=== PATIENT | male | born 1945 | race Hispanic/Latino ===

== ENCOUNTER 2018-03-02 21:14 | Emergency (ER) | payer SELFPAY ==
--- NOTE | 2018-03-02 22:06 | RAD ---
PORTABLE CHEST: 03/02/18 HISTORY: Patient tripped and fell down face first on yard. Heart size is enlarged. Mild vascular engorgement is noted. No focal infiltrates. More chronic appear ing lung changes seen. IMPRESSION: Cardiomegaly with some more chronic appearing lung changes and mild vascular engorgement. POS: [facility]
--- NOTE | 2018-03-02 22:07 | CT ---
CT OF BRAIN PERFORMED WITHOUT CONTRAST ENHANCEMENT: 03/02/18 HISTORY: Patient fell, was intoxicated. Fell and hit face. The ventricular and cisternal system shows fairly age appropriate change. There is no signs for intra cerebral hemorrhage or extra-axial fluid collections. Mastoid air cells are clear. Mucosal change in the right maxillary sinus is noted. IMPRESSION: No acute intracranial abnormalities. POS: [facility]
--- NOTE | 2018-03-02 22:23 | CT ---
CT OF CERVICAL SPINE PERFORMED WITHOUT CONTRAST ENHANCEMENT: 03/02/18 HISTORY: Patient tripped and fell with neck pain. The vertebral bodies are normal in height. Marked degenerative disc narrowing is seen at C4-5, C5-6 a nd C6-7. There are degenerative facet changes also present. Mild disc narrowing is seen at C3-4. There is left sided foraminal narrowing at C3-4 and C4-5 and bilateral foraminal stenosis at C5-6 wit h mild canal narrowing. Bilateral foraminal stenosis is also seen at C6-7. There is no CT evidence fo r fracture. Chronic appearing lung changes are seen. IMPRESSION: No CT evidence of fracture of the cervical spine. POS: [facility]
== END 2018-03-02 22:15 ==
LOC: ERS 21:14
DX: S01.21XA Laceration without foreign body of nose, initial encounter (principal); F17.210 Nicotine dependence, cigarettes, uncomplicated; W01.0XXA Fall on same level from slipping, tripping and stumbling without subsequent striking against object, initial encounter
CPT/HCPCS: 36416; 70450; 71045; 72125; 94760

== ENCOUNTER 2020-07-20 09:52 | Emergency (ER) | payer SELFPAY ==
[2020-07-20] MEDS ORDERED: Dexamethasone 10 MG/ML VIAL ONE (10:52)
[2020-07-20 11:09] LABS: #Basophils 0.1 thou/uL (0.0-0.2); #Eosinphils 1.7 thou/uL (0.0-0.7); #Lymphocytes 3.1 thou/uL (1.20-3.40); #Monocytes 0.4 thou/uL (0.11-0.59); #Neutrophils 4.9 thou/uL (1.40-6.50); %Basophils 0.7 % (0.0-1.0); %Eosinophils 16.4 % (0.0-10.0); %Lymphocytes 30.6 % (21.0-51.0); %Monocytes 3.8 % (0.0-10.0); %Neutrophils 48.5 % (42.0-75.0); Hemoglobin 14.5 g/dL (14.0-18.0); Mean Corpuscular HGB CONC 33.9 g/dL (32.0-36.0); Mean Corpuscular Hemoglobin 34.5 pg (27.0-31.0); Mean Platelet Volume 7.7 fL (7.4-10.4); Platelet Count 323 thou/uL (130-400); RBC Distribution Width 12.2 % (11.5-14.5); Red Blood Cell (RBC) Count 4.21 mill/uL (4.70-6.10)
[2020-07-20] MEDS ORDERED: Albuterol 200 PUFF (6.7GM INHALER) ONE (11:11)
[2020-07-20 11:17] LABS: ALT (SGPT) 23 U/L (8-55); AST (SGOT) 29 U/L (5-34); Albumin 3.9 g/dL (3.4-4.8); Alkaline Phosphatase 133 U/L (40-110); Anion Gap 13 mmol/L (10-20); BUN (Urea Nitrogen) 14 mg/dL (8.4-25.7); Bilirubin, Total 0.5 mg/dL (0.2-1.2); Calc. Creatinine Clearance 0 mL/min (70-130); Calcium 9.4 mg/dL (7.8-10.44); Carbon Dioxide 22 mmol/L (23-31); Chloride 108 mmol/L (98-107); Globulin 4.8 g/dL (2.4-3.5); Glucose 94 mg/dL (83-110); Potassium 3.8 mmol/L (3.5-5.1); Protein, Total 8.7 g/dL (5.8-8.1); Sodium 139 mmol/L (136-145)
== END 2020-07-20 12:22 | disposition home or self-care (01) ==
LOC: ERS 09:52
DX: J44.1 Chronic obstructive pulmonary disease with (acute) exacerbation (principal); F17.210 Nicotine dependence, cigarettes, uncomplicated
CPT/HCPCS: 36415; 71045; 80053; 83880; 84484; 85025; 93005; 96374; J1100

== ENCOUNTER 2020-10-19 08:55 | Emergency (ER) | payer SELFPAY ==
[2020-10-19] MEDS ORDERED: Albuterol 200 PUFF (6.7GM INHALER) ONE (09:23)
[2020-10-19] MEDS ORDERED: predniSONE 20 MG TAB ONE (09:24)
== END 2020-10-19 11:22 | disposition home or self-care (01) ==
LOC: ERS 08:55
DX: R06.03 Acute respiratory distress (principal); J81.1 Chronic pulmonary edema; F17.210 Nicotine dependence, cigarettes, uncomplicated
CPT/HCPCS: 71045; J7512; J7620

== ENCOUNTER 2021-01-22 09:31 | Observation (INO) | payer MEDICARE, SELFPAY ==
[2021-01-22] MEDS ORDERED: Iopamidol-370 76% 500 ML 1 ML ONE (10:17)
[2021-01-22 11:06] LABS: #Basophils 0.1 thou/uL (0.0-0.2); #Eosinphils 2.2 thou/uL (0.0-0.7); #Lymphocytes 2.7 thou/uL (1.20-3.40); #Monocytes 0.5 thou/uL (0.11-0.59); #Neutrophils 4.3 thou/uL (1.40-6.50); %Basophils 0.8 % (0.0-1.0); %Eosinophils 22.2 % (0.0-10.0); %Lymphocytes 27.6 % (21.0-51.0); %Neutrophils 44.4 % (42.0-75.0); Mean Corpuscular HGB CONC 32.6 g/dL (32.0-36.0); Mean Corpuscular Hemoglobin 33.7 pg (27.0-31.0); Mean Platelet Volume 7.8 fL (7.4-10.4); Platelet Count 373 thou/uL (130-400); RBC Distribution Width 12.8 % (11.5-14.5); Red Blood Cell (RBC) Count 4.46 mill/uL (4.70-6.10); White Blood Cell (WBC) Count 9.7 thou/uL (4.8-10.8)
[2021-01-22 11:33] LABS: ALT (SGPT) 12 U/L (8-55); AST (SGOT) 20 U/L (5-34); Albumin 3.7 g/dL (3.4-4.8); Alkaline Phosphatase 160 U/L (40-110); Anion Gap 14 mmol/L (10-20); BUN (Urea Nitrogen) 8 mg/dL (8.4-25.7); Bilirubin, Total 0.4 mg/dL (0.2-1.2); Calc. Creatinine Clearance 0 mL/min (70-130); Calcium 9.5 mg/dL (7.8-10.44); Carbon Dioxide 23 mmol/L (23-31); Chloride 106 mmol/L (98-107); Globulin 4.4 g/dL (2.4-3.5); Glucose 96 mg/dL (83-110); Potassium 4.1 mmol/L (3.5-5.1); Protein, Total 8.1 g/dL (5.8-8.1); Sodium 139 mmol/L (136-145)
[2021-01-22 12:13] LABS: SARS-CoV-2 NAA Rapid Test Not Detected (NotDetected)
[2021-01-22] MEDS ORDERED: Acetaminophen 325 MG TAB PO PRN (16:00)
[2021-01-22] MEDS ORDERED: Ondansetron ODT 4 MG TAB PO PRN (16:00)
[2021-01-22] MEDS ORDERED: Guaifenesin DM 100-10/5 ML UDCUP PO PRN (16:00)
[2021-01-22] MEDS ORDERED: Albuterol Sulfate 2.5 mg/3 ml Neb NEB PRN (16:02)
[2021-01-22] MEDS ORDERED: hydrALAZINE 20 MG/ML VIAL SLOW IVP PRN (16:13)
[2021-01-22] MEDS ORDERED: Electrolyte Replacement Protocol 1 EACH FS SCH (16:15)
[2021-01-22 16:54] LABS: Magnesium 2.1 mg/dL (1.6-2.6)
[2021-01-22] MEDS ORDERED: HYDROcodone/Acetaminophen 5/325 mg Tablet PO PRN (17:24)
[2021-01-22 18:38] VITALS: BMI 23.6
[2021-01-22] MEDS ORDERED: Enoxaparin Sodium 40 MG/0.4 ML SYRINGE SC SCH (19:00)
[2021-01-22] MEDS ORDERED: methylPREDNISolone Sod Succ 40 MG VIAL IVP SCH (19:15)
[2021-01-22] MEDS: Nicotine 14 MG PATCH TD SCH (20:10)
[2021-01-22] MEDS: methylPREDNISolone Sod Succ 40 MG VIAL IVP SCH (22:01)
[2021-01-23 06:02] LABS: Hemoglobin 15.4 g/dL (14.0-18.0); Lymphocytes 22 % (21-51); MDiff Complete? YES; Mean Corpuscular HGB CONC 32.4 g/dL (32.0-36.0); Mean Corpuscular Hemoglobin 33.8 pg (27.0-31.0); Mean Platelet Volume 7.7 fL (7.4-10.4); Neutrophil 78 % (42-75); Platelet Count 402 thou/uL (130-400); Platelet Morphology Comment Appears Adequate; RBC Distribution Width 12.8 % (11.5-14.5); RBC Morphology Normal; Red Blood Cell (RBC) Count 4.58 mill/uL (4.70-6.10)
[2021-01-23 06:14] LABS: BUN (Urea Nitrogen) 10 mg/dL (8.4-25.7); Calc. Creatinine Clearance 86 mL/min (70-130); Calcium 9.8 mg/dL (7.8-10.44); Carbon Dioxide 22 mmol/L (23-31); Glucose 153 mg/dL (83-110)
[2021-01-23 06:21] LABS: Anion Gap 13 mmol/L (10-20); Chloride 105 mmol/L (98-107); Potassium 4.1 mmol/L (3.5-5.1); Sodium 136 mmol/L (136-145)
[2021-01-23] MEDS: methylPREDNISolone Sod Succ 40 MG VIAL IVP SCH ×3 (06:34→21:27)
[2021-01-23] MEDS: Enoxaparin Sodium 40 MG/0.4 ML SYRINGE SC SCH (08:57)
[2021-01-23] MEDS: Nicotine 14 MG PATCH TD SCH (20:02)
[2021-01-24 05:52] LABS: Anion Gap 13 mmol/L (10-20); BUN (Urea Nitrogen) 15 mg/dL (8.4-25.7); Band 2 % (5-11); Calc. Creatinine Clearance 83 mL/min (70-130); Calcium 9.5 mg/dL (7.8-10.44); Carbon Dioxide 23 mmol/L (23-31); Chloride 104 mmol/L (98-107); Glucose 138 mg/dL (83-110); Hemoglobin 14.2 g/dL (14.0-18.0); Lymphocytes 14 % (21-51); MDiff Complete? YES; Macrocytosis SLIGHT = 6-15 cells (100X) (0-5/hpf); Mean Corpuscular HGB CONC 32.8 g/dL (32.0-36.0); Mean Corpuscular Hemoglobin 34.2 pg (27.0-31.0); Mean Platelet Volume 7.4 fL (7.4-10.4); Monocytes 1 % (0-10); Neutrophil 83 % (42-75); Platelet Count 384 thou/uL (130-400); Platelet Morphology Comment Appears Adequate; Potassium 4.1 mmol/L (3.5-5.1); RBC Distribution Width 12.7 % (11.5-14.5); Red Blood Cell (RBC) Count 4.15 mill/uL (4.70-6.10); Sodium 136 mmol/L (136-145); White Blood Cell (WBC) Count 6.7 thou/uL (4.8-10.8)
[2021-01-24] MEDS: methylPREDNISolone Sod Succ 40 MG VIAL IVP SCH (06:44)
[2021-01-24] MEDS: Enoxaparin Sodium 40 MG/0.4 ML SYRINGE SC SCH (08:34)
[2021-01-24 09:41] VITALS: BP 158/65; TEMP 98.3
== END 2021-01-24 09:30 | disposition left against medical advice (07) ==
LOC: ERS 09:31 → 2SW 14:48
PROVIDERS: ADMIT Internal Medicine; ATTEND Internal Medicine
DX: J96.01 Acute respiratory failure with hypoxia (principal); J44.9 Chronic obstructive pulmonary disease, unspecified; J84.9 Interstitial pulmonary disease, unspecified; R91.1 Solitary pulmonary nodule; F17.210 Nicotine dependence, cigarettes, uncomplicated; Z20.822 Contact with and (suspected) exposure to COVID-19; M47.816 Spondylosis without myelopathy or radiculopathy, lumbar region; Z91.14 Patient's other noncompliance with medication regimen; Z53.29 Procedure and treatment not carried out because of patient's decision for other reasons; Z79.52 Long term (current) use of systemic steroids; Z79.2 Long term (current) use of antibiotics
CPT/HCPCS: 71045; 71275; 80048 ×2; 80053; 83735; 83880; 84484 ×2; 85007 ×2; 85025; 85027 ×2; 87070; 87205; 93005; 94640 ×3; U0002; 36415; J0360; J1650; J2920; J7620; Q9967

== ENCOUNTER 2021-03-07 13:06 | Inpatient (IN) | payer MEDICARE ==
[2021-03-07 13:32] LABS: #Basophils 0.1 thou/uL (0.0-0.2); #Lymphocytes 4.3 thou/uL (1.20-3.40); #Monocytes 0.6 thou/uL (0.11-0.59); #Neutrophils 5.1 thou/uL (1.40-6.50); %Basophils 0.6 % (0.0-1.0); %Eosinophils 16.4 % (0.0-10.0); %Lymphocytes 35.7 % (21.0-51.0); %Monocytes 5.2 % (0.0-10.0); %Neutrophils 42.2 % (42.0-75.0); Hemoglobin 16.7 g/dL (14.0-18.0); Mean Corpuscular HGB CONC 34.1 g/dL (32.0-36.0); Mean Corpuscular Hemoglobin 34.3 pg (27.0-31.0); Mean Platelet Volume 7.5 fL (7.4-10.4); Platelet Count 332 thou/uL (130-400); RBC Distribution Width 13.2 % (11.5-14.5); Red Blood Cell (RBC) Count 4.86 mill/uL (4.70-6.10); White Blood Cell (WBC) Count 12.2 thou/uL (4.8-10.8)
[2021-03-07] MEDS ORDERED: Magnesium 2 GM/50 ML BAG (IN WATER) ONE (14:37)
[2021-03-07] MEDS ORDERED: methylPREDNISolone Sod Succ/PF 125 MG/2 ML VIAL ONE (14:37)
[2021-03-07 14:48] LABS: ALT (SGPT) 10 U/L (8-55); AST (SGOT) 20 U/L (5-34); Albumin 3.6 g/dL (3.4-4.8); Alkaline Phosphatase 123 U/L (40-110); Anion Gap 13 mmol/L (10-20); BUN (Urea Nitrogen) 8 mg/dL (8.4-25.7); Bilirubin, Total 0.4 mg/dL (0.2-1.2); Calc. Creatinine Clearance 0 mL/min (70-130); Calcium 9.4 mg/dL (7.8-10.44); Carbon Dioxide 23 mmol/L (23-31); Chloride 105 mmol/L (98-107); Globulin 4.6 g/dL (2.4-3.5); Glucose 101 mg/dL (83-110); Potassium 3.6 mmol/L (3.5-5.1); Protein, Total 8.2 g/dL (5.8-8.1); Sodium 137 mmol/L (136-145)
[2021-03-07 15:51] LABS: SARS-CoV-2 NAA Rapid Test Not Detected (NotDetected)
[2021-03-07] MEDS ORDERED: Metoclopramide HCl 10 MG/2 ML VIAL IVP PRN (16:05)
[2021-03-07] MEDS ORDERED: Nicotine 7 MG PATCH TD PRN (16:13)
[2021-03-07] MEDS ORDERED: hydrALAZINE 20 MG/ML VIAL SLOW IVP PRN (16:13)
[2021-03-07 17:54] VITALS: BMI 33.3
[2021-03-07] MEDS ORDERED: FLU VACC QS2021-22(65YR UP)/PF 240 MCG/0.7 ML SYRINGE IM ONE (18:15)
[2021-03-07] MEDS: Sodium Chloride 0.9% 1,000 ML IV SCH (18:21)
[2021-03-07] MEDS: Arformoterol 15 MCG/2 ML NEB NEB SCH (18:47)
[2021-03-07] MEDS: methylPREDNISolone Sod Succ 40 MG VIAL IVP SCH (20:13)
[2021-03-08] MEDS: Guaifenesin DM 100-10/5 ML UDCUP PO PRN ×3 (00:18→20:30)
[2021-03-08] MEDS: Acetaminophen 325 MG TAB PO PRN ×2 (00:18→20:31)
[2021-03-08] MEDS: Benzonatate 100 MG CAP PO PRN ×2 (00:18→14:44)
[2021-03-08] MEDS: methylPREDNISolone Sod Succ 40 MG VIAL IVP SCH ×4 (04:24→20:30)
[2021-03-08] MEDS: Sodium Chloride 0.9% 1,000 ML IV SCH (05:34)
[2021-03-08 06:10] LABS: #Lymphocytes 1.5 thou/uL (1.20-3.40); #Monocytes 0.2 thou/uL (0.11-0.59); #Neutrophils 3.2 thou/uL (1.40-6.50); %Basophils 0.8 % (0.0-1.0); %Eosinophils 0.1 % (0.0-10.0); %Lymphocytes 29.8 % (21.0-51.0); %Monocytes 3.6 % (0.0-10.0); %Neutrophils 65.7 % (42.0-75.0); Mean Corpuscular HGB CONC 34.3 g/dL (32.0-36.0); Mean Corpuscular Hemoglobin 34.4 pg (27.0-31.0); Mean Platelet Volume 7.5 fL (7.4-10.4); Platelet Count 324 thou/uL (130-400); RBC Distribution Width 13.2 % (11.5-14.5); Red Blood Cell (RBC) Count 4.67 mill/uL (4.70-6.10); White Blood Cell (WBC) Count 4.9 thou/uL (4.8-10.8)
[2021-03-08 06:40] LABS: Anion Gap 15 mmol/L (10-20); BUN (Urea Nitrogen) 10 mg/dL (8.4-25.7); Calc. Creatinine Clearance 90 mL/min (70-130); Calcium 9.6 mg/dL (7.8-10.44); Carbon Dioxide 23 mmol/L (23-31); Chloride 105 mmol/L (98-107); Glucose 136 mg/dL (83-110); Potassium 4.5 mmol/L (3.5-5.1); Sodium 138 mmol/L (136-145)
[2021-03-08] MEDS: Enoxaparin Sodium 40 MG/0.4 ML SYRINGE SC SCH (08:00)
[2021-03-08] MEDS: Loratadine 10 MG TAB PO SCH (08:00)
[2021-03-08] MEDS: Arformoterol 15 MCG/2 ML NEB NEB SCH ×2 (10:43→20:10)
[2021-03-08] MEDS ORDERED: Furosemide 40 MG/4 ML VIAL SLOW IVP SCH (15:15)
[2021-03-08 16:24] LABS: Ref Lab Test Ordered STRONGYLOIDES IGG; Reference Lab Name LABCORP
[2021-03-08] MEDS: cefTRIAXone\\ROCEPHIN 1 GM in Sodium Chloride 0.9% 100 ML IVPB SCH (16:38)
[2021-03-09] MEDS: Guaifenesin DM 100-10/5 ML UDCUP PO PRN ×2 (04:45→20:13)
[2021-03-09] MEDS: Benzonatate 100 MG CAP PO PRN ×3 (04:45→20:35)
[2021-03-09] MEDS: Loratadine 10 MG TAB PO SCH (08:58)
[2021-03-09] MEDS: Enoxaparin Sodium 40 MG/0.4 ML SYRINGE SC SCH (08:58)
[2021-03-09] MEDS: methylPREDNISolone Sod Succ 40 MG VIAL IVP SCH ×2 (08:58→20:13)
[2021-03-09] MEDS: Arformoterol 15 MCG/2 ML NEB NEB SCH (09:12)
[2021-03-09] MEDS: cefTRIAXone\\ROCEPHIN 1 GM in Sodium Chloride 0.9% 100 ML IVPB SCH (16:33)
[2021-03-09] MEDS: Mometasone 200 MCG/Formoterol 5 MCG 120 PUFF INHALER INH SCH (18:42)
[2021-03-10] MEDS: Mometasone 200 MCG/Formoterol 5 MCG 120 PUFF INHALER INH SCH (06:55)
[2021-03-10 08:20] VITALS: BP 134/74; TEMP 98
[2021-03-10] MEDS: Loratadine 10 MG TAB PO SCH (08:38)
[2021-03-10] MEDS: methylPREDNISolone Sod Succ 40 MG VIAL IVP SCH (08:39)
[2021-03-10] MEDS: Enoxaparin Sodium 40 MG/0.4 ML SYRINGE SC SCH (08:39)
[2021-03-10] MEDS: cefTRIAXone\\ROCEPHIN 1 GM in Sodium Chloride 0.9% 100 ML IVPB SCH (16:45)
[2021-03-12 07:14] LABS: A. flavus Negative (Neg:<1:1); A. fumigatus Negative (Neg:<1:1); A. niger Negative (Neg:<1:1)
== END 2021-03-10 17:01 | disposition home or self-care (01) | DRG 196 ==
LOC: ERS 13:06 → T4-B 14:32 → OBSVTOIN 03-08 14:48
PROVIDERS: ADMIT Family Medicine; ATTEND Internal Medicine
DX: J84.9 Interstitial pulmonary disease, unspecified (principal); J96.21 Acute and chronic respiratory failure with hypoxia; F17.210 Nicotine dependence, cigarettes, uncomplicated; J44.9 Chronic obstructive pulmonary disease, unspecified; R91.8 Other nonspecific abnormal finding of lung field; I45.81 Long QT syndrome; Z79.51 Long term (current) use of inhaled steroids; Z79.52 Long term (current) use of systemic steroids; Z79.899 Other long term (current) drug therapy
CPT/HCPCS: 0240U; 36415; 36416; 71045; 80048; 80053; 82785; 83880; 84443; 84484; 85025; 86606; 93005; 94640; 96365; 96372; 96375; 96376; G0378; J0360; J0696; J1650; J1940; J2920; J2930; J3475; J3490; J7050; J7620

== ENCOUNTER 2022-03-04 11:59 | Inpatient (IN) | payer MEDICARE ==
[2022-03-04 12:54] LABS: #Basophils 0.1 thou/uL (0.0-0.2); #Eosinphils 0.6 thou/uL (0.0-0.7); #Lymphocytes 2.6 thou/uL (1.20-3.40); #Monocytes 0.5 thou/uL (0.11-0.59); #Neutrophils 5.2 thou/uL (1.40-6.50); %Basophils 0.6 % (0.0-1.0); %Eosinophils 7.1 % (0.0-10.0); %Lymphocytes 28.4 % (21.0-51.0); %Monocytes 5.8 % (0.0-10.0); %Neutrophils 58.1 % (42.0-75.0); Hemoglobin 15.7 g/dL (14.0-18.0); Mean Corpuscular HGB CONC 33.1 g/dL (32.0-36.0); Mean Corpuscular Hemoglobin 34.3 pg (27.0-31.0); Mean Platelet Volume 7.2 fL (7.4-10.4); Platelet Count 273 10x3/uL (130-400); RBC Distribution Width 13.7 % (11.5-14.5); Red Blood Cell (RBC) Count 4.58 mill/uL (4.70-6.10)
[2022-03-04 13:25] LABS: ALT (SGPT) 24 U/L (8-55); AST (SGOT) 26 U/L (5-34); Albumin 4.2 g/dL (3.4-4.8); Alkaline Phosphatase 182 U/L (40-110); Anion Gap 15 mmol/L (10-20); BUN (Urea Nitrogen) 12 mg/dL (8.4-25.7); Bilirubin, Total 0.5 mg/dL (0.2-1.2); Calc. Creatinine Clearance 0 mL/min (70-130); Calcium 9.1 mg/dL (7.8-10.44); Carbon Dioxide 21 mmol/L (23-31); Chloride 105 mmol/L (98-107); Estimated GFR 94; Globulin 3.4 g/dL (2.4-3.5); Glucose 75 mg/dL (83-110); Protein, Total 7.6 g/dL (5.8-8.1); Sodium 137 mmol/L (136-145)
[2022-03-04] MEDS ORDERED: predniSONE 20 MG TAB ONE (13:54)
[2022-03-04] MEDS ORDERED: Magnesium 2 GM/50 ML BAG (IN WATER) ONE (13:54)
[2022-03-04] MEDS ORDERED: Tamsulosin HCl 0.4 MG CAP PO SCH (15:00)
[2022-03-04] MEDS ORDERED: Senokot S 8.6-50 MG TAB PO PRN (16:24)
[2022-03-04] MEDS ORDERED: Ondansetron ODT 4 MG TAB PO PRN (16:24)
[2022-03-04] MEDS ORDERED: Furosemide 20 MG/2 ML VIAL SLOW IVP SCH (16:30)
[2022-03-04] MEDS: cefTRIAXone\\ROCEPHIN 1 GM in Sodium Chloride 0.9% 100 ML IVPB SCH (19:35)
[2022-03-04] MEDS: Doxycycline 100 MG CAP PO SCH (19:36)
[2022-03-04] MEDS: Famotidine 20 MG TAB PO SCH (19:36)
[2022-03-04 22:55] LABS: SARS-CoV-2 NAA Rapid Test Not Detected (NotDetected)
[2022-03-04] MEDS: Acetaminophen 325 MG TAB PO PRN (23:36)
[2022-03-05 00:41] VITALS: BMI 24.0
[2022-03-05 06:07] LABS: #Eosinphils 0.1 thou/uL (0.0-0.7); #Lymphocytes 2.5 thou/uL (1.20-3.40); #Monocytes 0.6 thou/uL (0.11-0.59); #Neutrophils 3.7 thou/uL (1.40-6.50); %Basophils 0.6 % (0.0-1.0); %Eosinophils 1.9 % (0.0-10.0); %Lymphocytes 35.7 % (21.0-51.0); %Neutrophils 53.8 % (42.0-75.0); Hemoglobin 14.5 g/dL (14.0-18.0); Mean Corpuscular HGB CONC 33.5 g/dL (32.0-36.0); Mean Corpuscular Hemoglobin 34.3 pg (27.0-31.0); Mean Platelet Volume 7.6 fL (7.4-10.4); Platelet Count 263 10x3/uL (130-400); RBC Distribution Width 13.8 % (11.5-14.5); Red Blood Cell (RBC) Count 4.22 mill/uL (4.70-6.10); White Blood Cell (WBC) Count 6.9 10x3/uL (4.8-10.8)
[2022-03-05 06:29] LABS: Anion Gap 14 mmol/L (10-20); BUN (Urea Nitrogen) 17 mg/dL (8.4-25.7); Calc. Creatinine Clearance 74 mL/min (70-130); Calcium 9.2 mg/dL (7.8-10.44); Carbon Dioxide 23 mmol/L (23-31); Chloride 106 mmol/L (98-107); Estimated GFR 93; Glucose 120 mg/dL (83-110); Potassium 4.1 mmol/L (3.5-5.1); Sodium 139 mmol/L (136-145)
[2022-03-05] MEDS: Doxycycline 100 MG CAP PO SCH ×2 (09:00→22:30)
[2022-03-05] MEDS: Enoxaparin Sodium 40 MG/0.4 ML SYRINGE SC SCH (09:00)
[2022-03-05] MEDS: Tamsulosin HCl 0.4 MG CAP PO SCH (09:00)
[2022-03-05] MEDS: Famotidine 20 MG TAB PO SCH ×2 (09:00→22:30)
[2022-03-05] MEDS: methylPREDNISolone Sod Succ 40 MG VIAL IVP SCH ×2 (09:00→22:31)
[2022-03-05] MEDS: cefTRIAXone\\ROCEPHIN 1 GM in Sodium Chloride 0.9% 100 ML IVPB SCH (16:16)
[2022-03-05] MEDS: Acetaminophen 325 MG TAB PO PRN (22:31)
[2022-03-06] MEDS: Famotidine 20 MG TAB PO SCH ×2 (08:25→20:31)
[2022-03-06] MEDS: Doxycycline 100 MG CAP PO SCH ×2 (08:25→20:30)
[2022-03-06] MEDS: methylPREDNISolone Sod Succ 40 MG VIAL IVP SCH ×2 (08:25→20:31)
[2022-03-06] MEDS: Tamsulosin HCl 0.4 MG CAP PO SCH (08:26)
[2022-03-06] MEDS: Enoxaparin Sodium 40 MG/0.4 ML SYRINGE SC SCH (08:26)
[2022-03-06] MEDS ORDERED: Chloraseptic Spray 180 ml Bottle PO SCH (09:30)
[2022-03-06] MEDS: cefTRIAXone\\ROCEPHIN 1 GM in Sodium Chloride 0.9% 100 ML IVPB SCH (16:52)
[2022-03-07] MEDS: Famotidine 20 MG TAB PO SCH ×2 (08:31→19:59)
[2022-03-07] MEDS: Tamsulosin HCl 0.4 MG CAP PO SCH (08:31)
[2022-03-07] MEDS: methylPREDNISolone Sod Succ 40 MG VIAL IVP SCH ×2 (08:31→19:59)
[2022-03-07] MEDS: Doxycycline 100 MG CAP PO SCH ×2 (08:31→19:59)
[2022-03-07] MEDS: Enoxaparin Sodium 40 MG/0.4 ML SYRINGE SC SCH (08:33)
[2022-03-07] MEDS: cefTRIAXone\\ROCEPHIN 1 GM in Sodium Chloride 0.9% 100 ML IVPB SCH (16:54)
[2022-03-08] MEDS: Tamsulosin HCl 0.4 MG CAP PO SCH (08:28)
[2022-03-08] MEDS: Doxycycline 100 MG CAP PO SCH ×2 (08:28→20:56)
[2022-03-08] MEDS: Famotidine 20 MG TAB PO SCH ×2 (08:28→20:56)
[2022-03-08] MEDS: Enoxaparin Sodium 40 MG/0.4 ML SYRINGE SC SCH (08:29)
[2022-03-08] MEDS: methylPREDNISolone Sod Succ 40 MG VIAL IVP SCH ×2 (08:31→20:42)
[2022-03-08] MEDS: cefTRIAXone\\ROCEPHIN 1 GM in Sodium Chloride 0.9% 100 ML IVPB SCH (16:36)
[2022-03-08] MEDS: Acetaminophen 325 MG TAB PO PRN (16:41)
[2022-03-08 22:31] VITALS: BP 145/77; TEMP 97.7
== END 2022-03-08 21:00 | disposition home or self-care (01) | DRG 196 ==
LOC: ERS 11:59 → T4-A 14:56
PROVIDERS: ADMIT Internal Medicine; ATTEND Internal Medicine
DX: J84.9 Interstitial pulmonary disease, unspecified (principal); I50.41 Acute combined systolic (congestive) and diastolic (congestive) heart failure; J44.1 Chronic obstructive pulmonary disease with (acute) exacerbation; N40.0 Benign prostatic hyperplasia without lower urinary tract symptoms; R77.9 Abnormality of plasma protein, unspecified; I08.0 Rheumatic disorders of both mitral and aortic valves; Z79.899 Other long term (current) drug therapy; Z79.51 Long term (current) use of inhaled steroids; Z79.52 Long term (current) use of systemic steroids; Z87.891 Personal history of nicotine dependence
CPT/HCPCS: 36415; 71045; 80048; 80053; 83880; 84484; 85025; 93005; 93306; 94640; 96374; J0696; J1650; J1940; J2920; J3475; J3490; J7512; J7620

== ENCOUNTER 2022-04-22 10:06 | Inpatient (IN) | payer MEDICARE ==
[2022-04-22] MEDS ORDERED: methylPREDNISolone Sod Succ/PF 125 MG/2 ML VIAL ONE (10:30)
[2022-04-22] MEDS ORDERED: Magnesium 2 GM/50 ML BAG (IN WATER) ONE (10:30)
[2022-04-22 11:05] LABS: #Lymphocytes 1.2 thou/uL (1.20-3.40); #Monocytes 0.6 thou/uL (0.11-0.59); #Neutrophils 12.4 thou/uL (1.40-6.50); %Eosinophils 0.3 % (0.0-10.0); %Lymphocytes 8.3 % (21.0-51.0); %Monocytes 4.4 % (0.0-10.0); Hemoglobin 14.4 g/dL (14.0-18.0); Mean Corpuscular Hemoglobin 34.1 pg (27.0-31.0); Platelet Count 445 10x3/uL (130-400); RBC Distribution Width 12.9 % (11.5-14.5); Red Blood Cell (RBC) Count 4.23 mill/uL (4.70-6.10); White Blood Cell (WBC) Count 14.3 10x3/uL (4.8-10.8)
[2022-04-22 11:16] LABS: INR-International Normal Ratio 0.9; PTT 32.4 sec (22.9-36.1); Prothrombin Time 12.9 sec (12.0-14.7)
[2022-04-22 11:22] LABS: ALT (SGPT) 44 U/L (8-55); AST (SGOT) 24 U/L (5-34); Alkaline Phosphatase 113 U/L (40-110); Anion Gap 15 mmol/L (10-20); BUN (Urea Nitrogen) 21 mg/dL (8.4-25.7); Bilirubin, Total 0.5 mg/dL (0.2-1.2); Calc. Creatinine Clearance 0 mL/min (70-130); Calcium 9.8 mg/dL (7.8-10.44); Carbon Dioxide 22 mmol/L (23-31); Chloride 106 mmol/L (98-107); Estimated GFR 95; Globulin 3.6 g/dL (2.4-3.5); Glucose 133 mg/dL (83-110); Lipase 8 U/L (8-78); Potassium 3.7 mmol/L (3.5-5.1); Protein, Total 7.6 g/dL (5.8-8.1); Sodium 139 mmol/L (136-145)
[2022-04-22 11:23] LABS: D-Dimer Test Less than 0.27 *mcg/mL (0.27-0.43)
[2022-04-22] MEDS ORDERED: Albuterol 200 PUFF (6.7GM INHALER) ONE (11:41)
[2022-04-22 14:14] LABS: Troponin I Less than 0.010 ng/mL (< 0.028)
[2022-04-22] MEDS ORDERED: Acetaminophen 325 MG TAB PO PRN (14:34)
[2022-04-22] MEDS ORDERED: Senokot S 8.6-50 MG TAB PO PRN (14:34)
[2022-04-22] MEDS ORDERED: Ipratropium Bromide 2.5 ml Neb NEB PRN (14:35)
[2022-04-22] MEDS ORDERED: cefTRIAXone\\ROCEPHIN 1 GM in Sodium Chloride 0.9% 100 ML IVPB SCH (14:45)
[2022-04-22 15:23] LABS: SARS-CoV-2 NAA Rapid Test Not Detected (NotDetected)
[2022-04-22] MEDS ORDERED: Lisinopril 10 MG TAB PO SCH (17:10)
[2022-04-22] MEDS ORDERED: hydrALAZINE 20 MG/ML VIAL SLOW IVP PRN (17:43)
[2022-04-22 17:44] LABS: Troponin I Less than 0.010 ng/mL (< 0.028)
[2022-04-22] MEDS: Ipratropium/Albuterol 3 ML NEB NEB SCH (19:32)
[2022-04-22] MEDS: Tamsulosin HCl 0.4 MG CAP PO SCH (21:05)
[2022-04-22] MEDS: Famotidine 20 MG TAB PO SCH (21:05)
[2022-04-22] MEDS: methylPREDNISolone Sod Succ 40 MG VIAL IVP SCH (21:08)
[2022-04-23] MEDS: Ipratropium/Albuterol 3 ML NEB NEB SCH ×4 (00:55→19:38)
[2022-04-23 05:42] LABS: #Lymphocytes 1.6 thou/uL (1.20-3.40); #Monocytes 0.6 thou/uL (0.11-0.59); #Neutrophils 7.4 thou/uL (1.40-6.50); %Eosinophils 0.2 % (0.0-10.0); %Lymphocytes 16.8 % (21.0-51.0); %Monocytes 6.3 % (0.0-10.0); %Neutrophils 76.8 % (42.0-75.0); Hemoglobin 13.8 g/dL (14.0-18.0); Mean Corpuscular HGB CONC 33.5 g/dL (32.0-36.0); Platelet Count 394 10x3/uL (130-400); RBC Distribution Width 12.8 % (11.5-14.5); Red Blood Cell (RBC) Count 3.95 mill/uL (4.70-6.10); White Blood Cell (WBC) Count 9.6 10x3/uL (4.8-10.8)
[2022-04-23] MEDS: methylPREDNISolone Sod Succ 40 MG VIAL IVP SCH ×3 (05:54→21:05)
[2022-04-23 06:02] LABS: Anion Gap 14 mmol/L (10-20); BUN (Urea Nitrogen) 20 mg/dL (8.4-25.7); Calc. Creatinine Clearance 98 mL/min (70-130); Calcium 9.2 mg/dL (7.8-10.44); Carbon Dioxide 22 mmol/L (23-31); Chloride 105 mmol/L (98-107); Estimated GFR 98; Glucose 136 mg/dL (83-110); Potassium 4.1 mmol/L (3.5-5.1); Sodium 137 mmol/L (136-145)
[2022-04-23] MEDS ORDERED: Furosemide 20 MG TAB PO SCH ×2 (09:00)
[2022-04-23] MEDS: Famotidine 20 MG TAB PO SCH ×2 (09:52→21:05)
[2022-04-23] MEDS: Lisinopril 10 MG TAB PO SCH (09:53)
[2022-04-23] MEDS ORDERED: Ipratropium/Albuterol 3 ML NEB NEB PRN (11:12)
[2022-04-23] MEDS ORDERED: Furosemide 20 MG/2 ML VIAL SLOW IVP SCH (11:30)
[2022-04-23] MEDS: Tamsulosin HCl 0.4 MG CAP PO SCH (21:05)
[2022-04-23] MEDS: Amoxicillin/Potassium Clav 875 MG TAB PO SCH (21:05)
[2022-04-23] MEDS: Doxycycline 100 MG CAP PO SCH (21:05)
[2022-04-24] MEDS: Ipratropium/Albuterol 3 ML NEB NEB SCH ×4 (00:54→18:53)
[2022-04-24] MEDS: Furosemide 20 MG/2 ML VIAL SLOW IVP SCH (05:23)
[2022-04-24] MEDS: methylPREDNISolone Sod Succ 40 MG VIAL IVP SCH ×3 (05:23→22:04)
[2022-04-24 06:42] LABS: #Lymphocytes 1.9 thou/uL (1.20-3.40); #Monocytes 0.6 thou/uL (0.11-0.59); #Neutrophils 9.9 thou/uL (1.40-6.50); %Basophils 0.1 % (0.0-1.0); %Eosinophils 0.2 % (0.0-10.0); %Lymphocytes 15.3 % (21.0-51.0); %Monocytes 4.8 % (0.0-10.0); %Neutrophils 79.6 % (42.0-75.0); Hemoglobin 14.9 g/dL (14.0-18.0); Mean Corpuscular HGB CONC 33.2 g/dL (32.0-36.0); Mean Corpuscular Hemoglobin 34.4 pg (27.0-31.0); Mean Platelet Volume 8.1 fL (7.4-10.4); Platelet Count 406 10x3/uL (130-400); RBC Distribution Width 12.9 % (11.5-14.5); Red Blood Cell (RBC) Count 4.33 mill/uL (4.70-6.10); White Blood Cell (WBC) Count 12.4 10x3/uL (4.8-10.8)
[2022-04-24 06:52] LABS: Anion Gap 15 mmol/L (10-20); BUN (Urea Nitrogen) 27 mg/dL (8.4-25.7); Calc. Creatinine Clearance 83 mL/min (70-130); Calcium 9.7 mg/dL (7.8-10.44); Carbon Dioxide 26 mmol/L (23-31); Chloride 100 mmol/L (98-107); Estimated GFR 93; Glucose 130 mg/dL (83-110); Potassium 4.2 mmol/L (3.5-5.1); Sodium 137 mmol/L (136-145)
[2022-04-24] MEDS ORDERED: Senokot S 8.6-50 MG TAB PO PRN (07:00)
[2022-04-24] MEDS: Amoxicillin/Potassium Clav 875 MG TAB PO SCH ×2 (08:39→20:31)
[2022-04-24] MEDS: Doxycycline 100 MG CAP PO SCH ×2 (08:41→20:31)
[2022-04-24] MEDS: Famotidine 20 MG TAB PO SCH ×2 (08:41→20:31)
[2022-04-24] MEDS: Lisinopril 10 MG TAB PO SCH (08:41)
[2022-04-24 09:03] VITALS: BMI 31.6
[2022-04-24] MEDS: Mometasone 100 MCG/Formoterol 5 MCG 120 PUFF INHALER INH SCH (18:53)
[2022-04-24] MEDS: Tamsulosin HCl 0.4 MG CAP PO SCH (20:31)
[2022-04-25] MEDS: Ipratropium/Albuterol 3 ML NEB NEB SCH ×4 (00:19→19:21)
[2022-04-25] MEDS: methylPREDNISolone Sod Succ 40 MG VIAL IVP SCH ×3 (05:31→20:58)
[2022-04-25] MEDS: Furosemide 20 MG/2 ML VIAL SLOW IVP SCH (05:32)
[2022-04-25] MEDS: Mometasone 100 MCG/Formoterol 5 MCG 120 PUFF INHALER INH SCH ×2 (06:55→19:21)
[2022-04-25] MEDS: Amoxicillin/Potassium Clav 875 MG TAB PO SCH ×2 (09:10→20:58)
[2022-04-25] MEDS: Lisinopril 10 MG TAB PO SCH (09:10)
[2022-04-25] MEDS: Doxycycline 100 MG CAP PO SCH ×2 (09:10→20:58)
[2022-04-25] MEDS: Famotidine 20 MG TAB PO SCH ×2 (09:10→20:58)
[2022-04-25] MEDS: Tamsulosin HCl 0.4 MG CAP PO SCH (20:58)
[2022-04-26] MEDS: Ipratropium/Albuterol 3 ML NEB NEB SCH ×2 (00:45→07:13)
[2022-04-26] MEDS: Furosemide 20 MG/2 ML VIAL SLOW IVP SCH (05:20)
[2022-04-26] MEDS: methylPREDNISolone Sod Succ 40 MG VIAL IVP SCH (05:20)
[2022-04-26] MEDS: Mometasone 100 MCG/Formoterol 5 MCG 120 PUFF INHALER INH SCH (07:12)
[2022-04-26] MEDS: Famotidine 20 MG TAB PO SCH (10:02)
[2022-04-26] MEDS: Doxycycline 100 MG CAP PO SCH (10:02)
[2022-04-26] MEDS: Amoxicillin/Potassium Clav 875 MG TAB PO SCH (10:02)
[2022-04-26] MEDS: Lisinopril 10 MG TAB PO SCH (10:02)
[2022-04-26 11:26] VITALS: BP 146/80; TEMP 97.9
== END 2022-04-26 11:07 | disposition home or self-care (01) | DRG 189 ==
LOC: ERS 10:06 → NEURO 15:25 → T4-A 04-23 16:39
PROVIDERS: ADMIT Family Medicine; ATTEND Internal Medicine
DX: J96.21 Acute and chronic respiratory failure with hypoxia (principal); J44.1 Chronic obstructive pulmonary disease with (acute) exacerbation; I50.42 Chronic combined systolic (congestive) and diastolic (congestive) heart failure; Z20.822 Contact with and (suspected) exposure to COVID-19; N40.0 Benign prostatic hyperplasia without lower urinary tract symptoms; I35.0 Nonrheumatic aortic (valve) stenosis; J84.10 Pulmonary fibrosis, unspecified; I27.20 Pulmonary hypertension, unspecified; Z60.2 Problems related to living alone; Z79.899 Other long term (current) drug therapy; Z79.52 Long term (current) use of systemic steroids; Z87.891 Personal history of nicotine dependence; Z99.81 Dependence on supplemental oxygen
CPT/HCPCS: 36415; 71045; 80048; 80053; 83690; 83880; 84484; 85025; 85379; 85610; 85730; 87040; 87077; 87149; 93005; 94640; 96365; 96375; J0696; J1650; J1940; J2920; J2930; J3475; J3490; J7620

== ENCOUNTER 2022-05-16 09:48 | Emergency (ER) | payer MEDICARE | END 2022-05-16 10:59 | disposition home or self-care (01) | LOC: ERS 09:48 | DX: Z76.0 Encounter for issue of repeat prescription (principal) | CPT/HCPCS: 99281 ==

== ENCOUNTER 2022-06-13 09:59 | Emergency (ER) | payer MEDICARE ==
[2022-06-13] MEDS ORDERED: predniSONE 20 MG TAB ONE (14:25)
[2022-06-13] MEDS ORDERED: Ipratropium/Albuterol 3 ML NEB ONE (14:25)
[2022-06-13 15:26] LABS: #Basophils 0.1 thou/uL (0.0-0.2); #Eosinphils 0.5 thou/uL (0.0-0.7); #Lymphocytes 4.1 thou/uL (1.20-3.40); #Monocytes 0.6 thou/uL (0.11-0.59); #Neutrophils 5.8 thou/uL (1.40-6.50); %Basophils 0.8 % (0.0-1.0); %Eosinophils 4.8 % (0.0-10.0); %Lymphocytes 36.5 % (21.0-51.0); %Monocytes 5.7 % (0.0-10.0); %Neutrophils 52.2 % (42.0-75.0); Hemoglobin 15.3 g/dL (14.0-18.0); Mean Corpuscular Hemoglobin 33.5 pg (27.0-31.0); Platelet Count 299 10x3/uL (130-400); RBC Distribution Width 13.1 % (11.5-14.5); Red Blood Cell (RBC) Count 4.57 mill/uL (4.70-6.10); White Blood Cell (WBC) Count 11.1 10x3/uL (4.8-10.8)
[2022-06-13] MEDS ORDERED: Ipratropium 200 Puff Oral Inhaler INH SCH (15:30)
[2022-06-13 15:48] LABS: ALT (SGPT) 15 U/L (8-55); AST (SGOT) 19 U/L (5-34); Albumin 4.2 g/dL (3.4-4.8); Alkaline Phosphatase 90 U/L (40-110); Anion Gap 13 mmol/L (10-20); BUN (Urea Nitrogen) 17 mg/dL (8.4-25.7); Bilirubin, Total 0.7 mg/dL (0.2-1.2); Calc. Creatinine Clearance 0 mL/min (70-130); Calcium 9.4 mg/dL (7.8-10.44); Carbon Dioxide 24 mmol/L (23-31); Chloride 106 mmol/L (98-107); Estimated GFR 92; Globulin 3.4 g/dL (2.4-3.5); Glucose 101 mg/dL (83-110); Potassium 3.4 mmol/L (3.5-5.1); Protein, Total 7.6 g/dL (5.8-8.1); Sodium 140 mmol/L (136-145)
[2022-06-13] MEDS ORDERED: Albuterol 200 PUFF INH ONE (16:28)
== END 2022-06-13 17:28 | disposition home or self-care (01) ==
LOC: ERS 09:59
DX: J44.1 Chronic obstructive pulmonary disease with (acute) exacerbation (principal); D72.829 Elevated white blood cell count, unspecified
CPT/HCPCS: 36415; 71045; 80053; 83880; 85025; 93005; J7512; J7620

== ENCOUNTER 2022-07-02 14:50 | Inpatient (IN) | payer MEDICARE ==
[2022-07-02] MEDS ORDERED: Ondansetron PF 4 MG/2 ML Vial ONE (15:31)
[2022-07-02 15:48] LABS: #Basophils 0.1 thou/uL (0.0-0.2); #Eosinphils 0.3 thou/uL (0.0-0.7); #Lymphocytes 3.2 thou/uL (1.20-3.40); #Monocytes 0.9 thou/uL (0.11-0.59); #Neutrophils 8.9 thou/uL (1.40-6.50); %Basophils 0.7 % (0.0-1.0); %Eosinophils 2.2 % (0.0-10.0); %Lymphocytes 23.8 % (21.0-51.0); %Monocytes 6.7 % (0.0-10.0); %Neutrophils 66.5 % (42.0-75.0); Hemoglobin 16.3 g/dL (14.0-18.0); Mean Corpuscular HGB CONC 35.4 g/dL (32.0-36.0); Mean Corpuscular Hemoglobin 35.5 pg (27.0-31.0); Mean Platelet Volume 8.4 fL (7.4-10.4); Platelet Count 333 10x3/uL (130-400); White Blood Cell (WBC) Count 13.3 10x3/uL (4.8-10.8)
[2022-07-02 16:09] LABS: ALT (SGPT) 14 U/L (8-55); AST (SGOT) 15 U/L (5-34); Acetaminophen Less than 10.0 mcg/mL (10.0-30.0); Albumin 4.2 g/dL (3.4-4.8); Alcohol Less than 10 mg/dL (Less than 10); Alkaline Phosphatase 89 U/L (40-110); Anion Gap 18 mmol/L (10-20); BUN (Urea Nitrogen) 11 mg/dL (8.4-25.7); Bilirubin, Total 1.1 mg/dL (0.2-1.2); CK (CPK) 87 U/L (30-200); Calc. Creatinine Clearance 0 mL/min (70-130); Calcium 9.4 mg/dL (7.8-10.44); Carbon Dioxide 22 mmol/L (23-31); Chloride 108 mmol/L (98-107); Estimated GFR 88; Globulin 3.2 g/dL (2.4-3.5); Glucose 142 mg/dL (83-110); Potassium 2.7 mmol/L (3.5-5.1); Protein, Total 7.4 g/dL (5.8-8.1); Salicylate Less than 8.0 mg/dL (15.0-30.0); Sodium 145 mmol/L (136-145)
[2022-07-02] MEDS ORDERED: Acetaminophen 325 MG TAB PO PRN (16:42)
[2022-07-02] MEDS ORDERED: Ondansetron PF 4 MG/2 ML Vial IVP PRN (16:42)
[2022-07-02] MEDS ORDERED: Potassium Chloride 20 MEQ/100 ML PREMIX BAG ONE (17:11)
[2022-07-02] MEDS ORDERED: Furosemide 40 MG/4 ML VIAL ONE (17:11)
[2022-07-02 17:27] LABS: SARS-CoV-2 NAA Rapid Test Not Detected (NotDetected)
[2022-07-02] MEDS ORDERED: methylPREDNISolone Sod Succ 40 MG VIAL IVP SCH ×2 (18:00→23:59)
[2022-07-02 18:12] LABS: Bacteria/HPF None Seen HPF (None Seen); Bilirubin Negative (Negative); Blood, Urine Negative (Negative); Clarity Clear (Clear); Glucose, Urine (Dipstick) Normal (Negative); Ketone, Urine Trace mg/dL (Negative); Leukocyte 25 Leu/uL (Negative); Nitrite Negative (Negative); Protein, Urine (Dipstick) 20 mg/dL (Neg-Trace); RBC/HPF 0-3 HPF (0-3); Specific Gravity, Urine 1.015 (1.002-1.036); Squamous Epithelial 0-3 HPF (0-3); Urobilinogen Normal mg/dL (Less than 2); pH, Urine 6.5 (5.0-9.0)
[2022-07-02 18:21] LABS: Amphetamine Not Detected (NotDetected); Barbiturates Screen Not Detected (NotDetected); Benzodiazepine Screen Not Detected (NotDetected); Cocaine Metabolite Screen Not Detected (NotDetected); Methadone Not Detected (NotDetected); Methamphetamine Not Detected (NotDetected); Opiate Screen Not Detected (NotDetected); Oxycodone Screen Not Detected (NotDetected); Phencyclidine (PCP) Not Detected (NotDetected); THC/Cannabinoid Screen Not Detected (NotDetected); Tricyclic Screen Not Detected (NotDetected)
[2022-07-02] MEDS: Ipratropium Bromide 2.5 ml Neb NEB SCH ×2 (18:52→23:24)
[2022-07-02] MEDS: Mometasone/Formoterol 200/5 60 PUFF INH SCH (18:56)
[2022-07-02 19:04] LABS: Lactic Acid 2.3 mmol/L (0.5-2.2)
[2022-07-02 20:13] VITALS: BMI 27.3
[2022-07-02 20:19] LABS: Bacteria/HPF None Seen HPF (None Seen); Bilirubin Negative (Negative); Blood, Urine Negative (Negative); CAUTI Indications for Culture Dysuria,urgency,freq; Clarity Clear (Clear); Glucose, Urine (Dipstick) Normal (Negative); Ketone, Urine Negative (Negative); Leukocyte Negative Leu/uL (Negative); Nitrite Negative (Negative); Protein, Urine (Dipstick) Negative (Neg-Trace); RBC/HPF 0-3 HPF (0-3); Specific Gravity, Urine 1.008 (1.002-1.036); Squamous Epithelial 0-3 HPF (0-3); Urobilinogen Normal mg/dL (Less than 2); WBC/HPF 0-3 HPF (0-3); pH, Urine 5.5 (5.0-9.0)
[2022-07-02 20:22] LABS: Urine Culture Reflex No No
[2022-07-02 20:28] LABS: Legionella Urinary Ag Negative (Negative); Strep pneumo Urine Ag NEGATIVE (NEGATIVE)
[2022-07-02] MEDS: Famotidine/PF 20 mg/2ml Vial SLOW IVP SCH (22:11)
[2022-07-02] MEDS: methylPREDNISolone Sod Succ 40 MG VIAL IVP SCH (22:11)
[2022-07-02 22:39] LABS: Anion Gap 18 mmol/L (10-20); BUN (Urea Nitrogen) 12 mg/dL (8.4-25.7); Calc. Creatinine Clearance 72 mL/min (70-130); Calcium 8.8 mg/dL (7.8-10.44); Carbon Dioxide 20 mmol/L (23-31); Chloride 108 mmol/L (98-107); Estimated GFR 91; Glucose 147 mg/dL (83-110); Potassium 3.6 mmol/L (3.5-5.1); Sodium 142 mmol/L (136-145)
[2022-07-03 03:59] LABS: #Lymphocytes 0.9 thou/uL (1.20-3.40); #Monocytes 0.1 thou/uL (0.11-0.59); #Neutrophils 5.2 thou/uL (1.40-6.50); %Basophils 0.3 % (0.0-1.0); %Eosinophils 0.1 % (0.0-10.0); %Lymphocytes 14.9 % (21.0-51.0); %Monocytes 1.5 % (0.0-10.0); %Neutrophils 83.3 % (42.0-75.0); Hemoglobin 14.1 g/dL (14.0-18.0); Mean Corpuscular HGB CONC 36.7 g/dL (32.0-36.0); Mean Corpuscular Hemoglobin 37.5 pg (27.0-31.0); Mean Platelet Volume 8.5 fL (7.4-10.4); Platelet Count 291 10x3/uL (130-400); RBC Distribution Width 13.7 % (11.5-14.5); Red Blood Cell (RBC) Count 3.77 mill/uL (4.70-6.10); White Blood Cell (WBC) Count 6.2 10x3/uL (4.8-10.8)
[2022-07-03 04:01] LABS: Hemoglobin A1c 5.4 % (4.0-6.0)
[2022-07-03 04:17] LABS: ALT (SGPT) 13 U/L (8-55); AST (SGOT) 16 U/L (5-34); Albumin 3.7 g/dL (3.4-4.8); Alkaline Phosphatase 73 U/L (40-110); Anion Gap 17 mmol/L (10-20); BUN (Urea Nitrogen) 15 mg/dL (8.4-25.7); Bilirubin, Direct 0.5 mg/dL (0.1-0.3); Bilirubin, Total 0.9 mg/dL (0.2-1.2); CRP (Inflammatory) 3.62 mg/dL (= or < 0.5); Calc. Creatinine Clearance 74 mL/min (70-130); Calcium 8.8 mg/dL (7.8-10.44); Carbon Dioxide 22 mmol/L (23-31); Cardiac Risk 3.6 (Less than 4.5); Chloride 105 mmol/L (98-107); Cholesterol 174 mg/dl (< 200 Desired); Estimated GFR 92; Glucose 146 mg/dL (83-110); HDL Cholesterol 49 mg/dL (>60 Neg Risk); LDL Cholesterol, Calculated 108 mg/dL; Magnesium 2.4 mg/dL (1.6-2.6); Potassium 3.5 mmol/L (3.5-5.1); Protein, Total 6.6 g/dL (5.8-8.1); Sodium 140 mmol/L (136-145); Triglycerides 84 mg/dL (Less than 150)
[2022-07-03] MEDS: methylPREDNISolone Sod Succ 40 MG VIAL IVP SCH ×4 (06:10→23:17)
[2022-07-03] MEDS: Furosemide 40 MG/4 ML VIAL SLOW IVP SCH ×2 (06:10→15:32)
[2022-07-03] MEDS: Mometasone/Formoterol 200/5 60 PUFF INH SCH ×2 (07:01→19:26)
[2022-07-03] MEDS: Ipratropium Bromide 2.5 ml Neb NEB SCH ×3 (07:01→19:27)
[2022-07-03] MEDS: Famotidine/PF 20 mg/2ml Vial SLOW IVP SCH ×2 (09:13→20:35)
[2022-07-03] MEDS ORDERED: Lorazepam 0.5 MG TAB PO SCH (14:15)
[2022-07-03] MEDS: Tamsulosin HCl 0.4 MG CAP PO SCH (15:31)
[2022-07-03] MEDS: Azithromycin 500 MG in Sodium Chloride 0.9% 250 ML 250 ML IVPB SCH (16:36)
[2022-07-03] MEDS: cefTRIAXone\\ROCEPHIN 2 GM in Sodium Chloride 0.9% 100 ML IVPB SCH (18:06)
[2022-07-03 18:10] LABS: ANA Symphony (Qualitative) Negative (Negative); ANA Symphony (Quantitative) 0.5 Ratio (< 0.7 Negative); Rheumatoid Factor IgA Antibody 7.5 IU/mL (<14 Negative); Rheumatoid Factor IgM Antibody 6.4 IU/mL (<3.5 Negative); dsDNA IgG Antibody 1.1 IU/mL (<10 Negative)
[2022-07-04] MEDS: Ipratropium/Albuterol 3 ML NEB NEB SCH ×4 (00:50→18:40)
[2022-07-04] MEDS: methylPREDNISolone Sod Succ 40 MG VIAL IVP SCH ×3 (04:54→18:04)
[2022-07-04 04:56] LABS: #Lymphocytes 1.1 thou/uL (1.20-3.40); #Monocytes 0.2 thou/uL (0.11-0.59); %Basophils 0.1 % (0.0-1.0); %Eosinophils 0.1 % (0.0-10.0); %Neutrophils 85.8 % (42.0-75.0); Hemoglobin 13.4 g/dL (14.0-18.0); Mean Corpuscular HGB CONC 32.4 g/dL (32.0-36.0); Mean Corpuscular Hemoglobin 32.8 pg (27.0-31.0); Mean Platelet Volume 8.1 fL (7.4-10.4); Platelet Count 306 10x3/uL (130-400); RBC Distribution Width 13.7 % (11.5-14.5); Red Blood Cell (RBC) Count 4.08 mill/uL (4.70-6.10); White Blood Cell (WBC) Count 9.3 10x3/uL (4.8-10.8)
[2022-07-04 05:08] LABS: Anion Gap 14 mmol/L (10-20); BUN (Urea Nitrogen) 24 mg/dL (8.4-25.7); Calc. Creatinine Clearance 70 mL/min (70-130); Calcium 9.3 mg/dL (7.8-10.44); Carbon Dioxide 27 mmol/L (23-31); Chloride 102 mmol/L (98-107); Estimated GFR 90; Glucose 162 mg/dL (83-110); Magnesium 2.4 mg/dL (1.6-2.6); Potassium 3.6 mmol/L (3.5-5.1); Sodium 139 mmol/L (136-145)
[2022-07-04] MEDS: Furosemide 40 MG/4 ML VIAL SLOW IVP SCH ×3 (05:41→14:48)
[2022-07-04] MEDS: Mometasone/Formoterol 200/5 60 PUFF INH SCH ×2 (07:29→18:42)
[2022-07-04] MEDS: Tamsulosin HCl 0.4 MG CAP PO SCH (08:39)
[2022-07-04] MEDS: Famotidine/PF 20 mg/2ml Vial SLOW IVP SCH ×2 (08:52→21:21)
[2022-07-04] MEDS: Azithromycin 500 MG in Sodium Chloride 0.9% 250 ML 250 ML IVPB SCH (16:39)
[2022-07-04] MEDS: cefTRIAXone\\ROCEPHIN 2 GM in Sodium Chloride 0.9% 100 ML IVPB SCH (18:04)
[2022-07-05] MEDS: methylPREDNISolone Sod Succ 40 MG VIAL IVP SCH ×5 (00:31→22:13)
[2022-07-05] MEDS: Ipratropium/Albuterol 3 ML NEB NEB SCH ×5 (01:08→23:41)
[2022-07-05] MEDS: Furosemide 40 MG/4 ML VIAL SLOW IVP SCH ×2 (05:35→14:39)
[2022-07-05 05:46] LABS: #Monocytes 0.3 thou/uL (0.11-0.59); #Neutrophils 8.2 thou/uL (1.40-6.50); %Basophils 0.4 % (0.0-1.0); %Eosinophils 0.2 % (0.0-10.0); %Lymphocytes 10.4 % (21.0-51.0); %Monocytes 3.3 % (0.0-10.0); %Neutrophils 85.8 % (42.0-75.0); Hemoglobin 13.2 g/dL (14.0-18.0); Mean Corpuscular HGB CONC 33.3 g/dL (32.0-36.0); Mean Corpuscular Hemoglobin 34.3 pg (27.0-31.0); Mean Platelet Volume 8.2 fL (7.4-10.4); Platelet Count 279 10x3/uL (130-400); RBC Distribution Width 13.6 % (11.5-14.5); Red Blood Cell (RBC) Count 3.83 mill/uL (4.70-6.10); White Blood Cell (WBC) Count 9.6 10x3/uL (4.8-10.8)
[2022-07-05 06:03] LABS: Anion Gap 13 mmol/L (10-20); BUN (Urea Nitrogen) 25 mg/dL (8.4-25.7); Calc. Creatinine Clearance 89 mL/min (70-130); Calcium 8.8 mg/dL (7.8-10.44); Carbon Dioxide 26 mmol/L (23-31); Chloride 101 mmol/L (98-107); Estimated GFR 97; Glucose 149 mg/dL (83-110); Magnesium 2.3 mg/dL (1.6-2.6); Potassium 3.8 mmol/L (3.5-5.1); Sodium 136 mmol/L (136-145)
[2022-07-05] MEDS: Mometasone/Formoterol 200/5 60 PUFF INH SCH ×2 (07:44→18:22)
[2022-07-05] MEDS: Famotidine/PF 20 mg/2ml Vial SLOW IVP SCH ×2 (09:01→22:14)
[2022-07-05] MEDS: Tamsulosin HCl 0.4 MG CAP PO SCH (09:01)
[2022-07-05] MEDS: Azithromycin 500 MG in Sodium Chloride 0.9% 250 ML 250 ML IVPB SCH (16:41)
[2022-07-05] MEDS: cefTRIAXone\\ROCEPHIN 2 GM in Sodium Chloride 0.9% 100 ML IVPB SCH (17:57)
[2022-07-06] MEDS: methylPREDNISolone Sod Succ 40 MG VIAL IVP SCH ×2 (05:19→12:27)
[2022-07-06] MEDS: Furosemide 40 MG/4 ML VIAL SLOW IVP SCH ×2 (05:19→14:50)
[2022-07-06] MEDS: Mometasone/Formoterol 200/5 60 PUFF INH SCH (07:52)
[2022-07-06] MEDS: Ipratropium/Albuterol 3 ML NEB NEB SCH ×2 (07:52→13:17)
[2022-07-06] MEDS: Famotidine/PF 20 mg/2ml Vial SLOW IVP SCH (08:25)
[2022-07-06] MEDS: Tamsulosin HCl 0.4 MG CAP PO SCH (08:25)
[2022-07-06 11:59] VITALS: TEMP 97.2
[2022-07-06 12:09] VITALS: BP 142/88
[2022-07-06 12:41] LABS: #Lymphocytes 0.8 thou/uL (1.20-3.40); #Monocytes 0.5 thou/uL (0.11-0.59); #Neutrophils 7.5 thou/uL (1.40-6.50); %Basophils 0.1 % (0.0-1.0); %Lymphocytes 9.1 % (21.0-51.0); %Neutrophils 84.8 % (42.0-75.0); Hemoglobin 14.6 g/dL (14.0-18.0); Mean Corpuscular HGB CONC 32.6 g/dL (32.0-36.0); Mean Corpuscular Hemoglobin 33.7 pg (27.0-31.0); Mean Platelet Volume 8.2 fL (7.4-10.4); Platelet Count 300 10x3/uL (130-400); RBC Distribution Width 13.4 % (11.5-14.5); Red Blood Cell (RBC) Count 4.34 mill/uL (4.70-6.10); White Blood Cell (WBC) Count 8.9 10x3/uL (4.8-10.8)
[2022-07-06 13:01] LABS: Anion Gap 16 mmol/L (10-20); BUN (Urea Nitrogen) 24 mg/dL (8.4-25.7); Calc. Creatinine Clearance 74 mL/min (70-130); Calcium 9.2 mg/dL (7.8-10.44); Carbon Dioxide 28 mmol/L (23-31); Chloride 99 mmol/L (98-107); Estimated GFR 93; Glucose 150 mg/dL (83-110); Magnesium 2.4 mg/dL (1.6-2.6); Potassium 3.7 mmol/L (3.5-5.1); Sodium 139 mmol/L (136-145)
[2022-07-06] MEDS ORDERED: methylPREDNISolone Sod Succ 40 MG VIAL IVP SCH (14:00)
== END 2022-07-06 16:35 | disposition home or self-care (01) | DRG 196 ==
LOC: ERS 14:50 → SUATTDRO 14:50 → CCU 16:47 → 2NO 07-03 21:43 → SURG A 07-06 00:29
PROVIDERS: ADMIT Family Medicine; ATTEND Hospitalist
DX: J84.9 Interstitial pulmonary disease, unspecified (principal); I50.33 Acute on chronic diastolic (congestive) heart failure; J96.01 Acute respiratory failure with hypoxia; J44.1 Chronic obstructive pulmonary disease with (acute) exacerbation; N40.1 Benign prostatic hyperplasia with lower urinary tract symptoms; N39.498 Other specified urinary incontinence; I27.20 Pulmonary hypertension, unspecified; F17.210 Nicotine dependence, cigarettes, uncomplicated; I35.0 Nonrheumatic aortic (valve) stenosis; Z91.148 Patient's other noncompliance with medication regimen for other reason; Z79.899 Other long term (current) drug therapy; Z79.52 Long term (current) use of systemic steroids; Z20.822 Contact with and (suspected) exposure to COVID-19
CPT/HCPCS: 36415; 36416; 71045; 71250; 80048; 80053; 80061; 80076; 80306; 80307; 81003; 81015; 82550; 82785; 83036; 83520; 83605; 83735; 83880; 84145; 84443; 84484; 85025; 86038; 86140; 86200; 86225; 87040; 87081; 87086; 87449; 87899; 93005; 93010; 93306; 94640; 94660; 94760; 96365; 96367; 96375; J0456; J0696; J1650; J1940; J2405; J2920; J3480; J3490; J7050; J7611; J7620; S0028

== ENCOUNTER 2022-07-16 09:52 | Inpatient (IN) | payer MEDICARE ==
[2022-07-16] MEDS ORDERED: methylPREDNISolone Sod Succ/PF 125 MG/2 ML VIAL ONE (10:14)
[2022-07-16] MEDS ORDERED: Magnesium 2 GM/50 ML BAG (IN WATER) ONE (10:14)
[2022-07-16 10:17] LABS: #Basophils 0.1 thou/uL (0.0-0.2); #Lymphocytes 1.6 thou/uL (1.20-3.40); #Monocytes 0.2 thou/uL (0.11-0.59); #Neutrophils 13.5 thou/uL (1.40-6.50); %Basophils 0.3 % (0.0-1.0); %Eosinophils 0.3 % (0.0-10.0); %Lymphocytes 10.3 % (21.0-51.0); %Monocytes 1.5 % (0.0-10.0); %Neutrophils 87.6 % (42.0-75.0); Mean Corpuscular HGB CONC 34.1 g/dL (32.0-36.0); Mean Corpuscular Hemoglobin 34.7 pg (27.0-31.0); Mean Platelet Volume 7.8 fL (7.4-10.4); Platelet Count 219 10x3/uL (130-400); RBC Distribution Width 13.5 % (11.5-14.5); Red Blood Cell (RBC) Count 4.89 mill/uL (4.70-6.10); White Blood Cell (WBC) Count 15.4 10x3/uL (4.8-10.8)
[2022-07-16 10:20] LABS: Actual Bicarbonate (HCO3v) 18.3 mEq/L (22-28); Analyzer IN Cardio ER; Base Excess -4.4 mEq/L (-2.0 to +3.0); Calcium, Ionized (venous) 1.13 mmol/L (1.16-1.32); Chloride (VBG) 109 mmol/L (98-106); Hematocrit-VBG 46 % (42.0-52.0); Hemoglobin (Hb) 15.8 g/dL (12.6-17.4); Potassium (VBG) 3.55 mmol/L (3.70-5.30); Sodium 140.2 mmol/L (133-146); pH (venous) 7.425 (7.32-7.43)
[2022-07-16] MEDS ORDERED: Ipratropium Bromide 2.5 ml Neb ONE (10:22)
[2022-07-16] MEDS ORDERED: Albuterol 2.5 MG/0.5 ML NEB ONE ×2 (10:22)
[2022-07-16] MEDS ORDERED: Tamsulosin HCl 0.4 MG CAP PO SCH ×2 (10:30→11:30)
[2022-07-16 10:40] LABS: ALT (SGPT) 24 U/L (8-55); AST (SGOT) 26 U/L (5-34); Albumin 4.2 g/dL (3.4-4.8); Alkaline Phosphatase 90 U/L (40-110); Anion Gap 20 mmol/L (10-20); BUN (Urea Nitrogen) 20 mg/dL (8.4-25.7); Bilirubin, Total 0.8 mg/dL (0.2-1.2); Calc. Creatinine Clearance 0 mL/min (70-130); Calcium 9.5 mg/dL (7.8-10.44); Carbon Dioxide 16 mmol/L (23-31); Chloride 110 mmol/L (98-107); Estimated GFR 92; Globulin 3.5 g/dL (2.4-3.5); Glucose 109 mg/dL (83-110); Potassium 3.9 mmol/L (3.5-5.1); Protein, Total 7.7 g/dL (5.8-8.1); Sodium 142 mmol/L (136-145)
[2022-07-16] MEDS ORDERED: Furosemide 40 MG/4 ML VIAL ONE (12:27)
[2022-07-16] MEDS ORDERED: Ondansetron ODT 4 MG TAB SL PRN (14:15)
[2022-07-16] MEDS ORDERED: Acetaminophen 325 MG TAB PO PRN ×2 (14:15→15:27)
[2022-07-16] MEDS ORDERED: Ondansetron PF 4 MG/2 ML Vial IVP PRN ×2 (14:15→15:27)
[2022-07-16 14:18] VITALS: BMI 25.5
[2022-07-16] MEDS ORDERED: Electrolyte Replacement Protocol IVPB SCH (15:24)
[2022-07-16] MEDS ORDERED: Ipratropium/Albuterol 3 ML NEB NEB PRN (15:26)
[2022-07-16] MEDS ORDERED: Ondansetron ODT 4 MG TAB PO PRN (15:27)
[2022-07-16] MEDS ORDERED: Calcium Carbonate 500 MG ChewTAB PO PRN (15:27)
[2022-07-16 17:21] LABS: Troponin I 0.026 ng/mL (< 0.028)
[2022-07-16] MEDS: Cefepime 2 GM in Sodium Chloride 0.9% 100 ML IVPB SCH (17:58)
[2022-07-16] MEDS: methylPREDNISolone Sod Succ 40 MG VIAL IVP SCH ×2 (17:58→23:53)
[2022-07-16] MEDS: Budesonide 0.5 MG/2 ML NEB NEB SCH (18:45)
[2022-07-16] MEDS: Ipratropium/Albuterol 3 ML NEB NEB SCH ×2 (18:45→22:14)
[2022-07-16 18:53] LABS: Anion Gap 19 mmol/L (10-20); BUN (Urea Nitrogen) 17 mg/dL (8.4-25.7); Calc. Creatinine Clearance 70 mL/min (70-130); Calcium 8.9 mg/dL (7.8-10.44); Carbon Dioxide 18 mmol/L (23-31); Chloride 106 mmol/L (98-107); Estimated GFR 91; Glucose 140 mg/dL (83-110); Potassium 3.9 mmol/L (3.5-5.1); Sodium 139 mmol/L (136-145)
[2022-07-16] MEDS ORDERED: Morphine 2 MG/ML VIAL SLOW IVP PRN (20:07)
[2022-07-16] MEDS: guaiFENesin ER 600 MG TAB PO SCH (20:50)
[2022-07-16] MEDS: Lisinopril 10 MG TAB PO SCH (20:50)
[2022-07-16] MEDS: Famotidine 20 MG TAB PO SCH (20:50)
[2022-07-16] MEDS: Doxycycline 100 MG CAP PO SCH (20:50)
[2022-07-16] MEDS: Senokot S 8.6-50 MG TAB PO SCH (20:52)
[2022-07-17] MEDS: Ipratropium/Albuterol 3 ML NEB NEB SCH ×6 (02:18→21:35)
[2022-07-17 03:47] LABS: #Monocytes 0.2 thou/uL (0.11-0.59); #Neutrophils 5.5 thou/uL (1.40-6.50); %Basophils 0.5 % (0.0-1.0); %Lymphocytes 14.9 % (21.0-51.0); %Monocytes 2.4 % (0.0-10.0); %Neutrophils 82.2 % (42.0-75.0); Hemoglobin 15.2 g/dL (14.0-18.0); Mean Corpuscular HGB CONC 34.5 g/dL (32.0-36.0); Mean Corpuscular Hemoglobin 35.5 pg (27.0-31.0); Mean Platelet Volume 7.9 fL (7.4-10.4); Platelet Count 193 10x3/uL (130-400); RBC Distribution Width 13.2 % (11.5-14.5); Red Blood Cell (RBC) Count 4.29 mill/uL (4.70-6.10); White Blood Cell (WBC) Count 6.7 10x3/uL (4.8-10.8)
[2022-07-17 04:12] LABS: Anion Gap 13 mmol/L (10-20); BUN (Urea Nitrogen) 22 mg/dL (8.4-25.7); Calc. Creatinine Clearance 69 mL/min (70-130); Calcium 9.4 mg/dL (7.8-10.44); Carbon Dioxide 23 mmol/L (23-31); Chloride 105 mmol/L (98-107); Estimated GFR 91; Glucose 147 mg/dL (83-110); Magnesium 2.3 mg/dL (1.6-2.6); Phosphorus 2.7 mg/dL (2.3-4.7); Potassium 4.3 mmol/L (3.5-5.1); Sodium 137 mmol/L (136-145)
[2022-07-17] MEDS: methylPREDNISolone Sod Succ 40 MG VIAL IVP SCH ×4 (05:58→23:23)
[2022-07-17] MEDS: Cefepime 2 GM in Sodium Chloride 0.9% 100 ML IVPB SCH ×2 (05:58→17:29)
[2022-07-17] MEDS: Budesonide 0.5 MG/2 ML NEB NEB SCH ×2 (06:58→18:21)
[2022-07-17] MEDS: Senokot S 8.6-50 MG TAB PO SCH ×2 (10:00→20:24)
[2022-07-17] MEDS: Famotidine 20 MG TAB PO SCH ×2 (10:01→20:24)
[2022-07-17] MEDS: guaiFENesin ER 600 MG TAB PO SCH ×2 (10:01→20:24)
[2022-07-17] MEDS: Furosemide 20 MG/2 ML VIAL SLOW IVP SCH (10:03)
[2022-07-17] MEDS: Lisinopril 10 MG TAB PO SCH ×2 (10:03→20:23)
[2022-07-17] MEDS: Doxycycline 100 MG CAP PO SCH ×2 (10:03→20:23)
[2022-07-17] MEDS: Tamsulosin HCl 0.4 MG CAP PO SCH (10:03)
[2022-07-17] MEDS ORDERED: Cefepime 1 GM in Sodium Chloride 0.9% 100 ML IVPB SCH (18:00)
[2022-07-18] MEDS: Ipratropium/Albuterol 3 ML NEB NEB SCH ×6 (02:23→21:47)
[2022-07-18] MEDS: Cefepime 1 GM in Sodium Chloride 0.9% 100 ML IVPB SCH ×2 (05:07→17:06)
[2022-07-18] MEDS: methylPREDNISolone Sod Succ 40 MG VIAL IVP SCH (05:07)
[2022-07-18] MEDS: Budesonide 0.5 MG/2 ML NEB NEB SCH ×2 (07:40→18:10)
[2022-07-18] MEDS ORDERED: predniSONE 20 MG TAB PO SCH (09:00)
[2022-07-18] MEDS: Doxycycline 100 MG CAP PO SCH ×2 (09:09→20:12)
[2022-07-18] MEDS: guaiFENesin ER 600 MG TAB PO SCH ×2 (09:09→20:12)
[2022-07-18] MEDS: Lisinopril 10 MG TAB PO SCH ×2 (09:09→20:12)
[2022-07-18] MEDS: Famotidine 20 MG TAB PO SCH ×2 (09:09→20:12)
[2022-07-18] MEDS: Senokot S 8.6-50 MG TAB PO SCH ×2 (09:09→20:11)
[2022-07-18] MEDS: Tamsulosin HCl 0.4 MG CAP PO SCH (09:09)
[2022-07-18] MEDS: Furosemide 20 MG/2 ML VIAL SLOW IVP SCH (09:09)
[2022-07-19] MEDS: Ipratropium/Albuterol 3 ML NEB NEB SCH ×6 (02:02→22:31)
[2022-07-19] MEDS: Cefepime 1 GM in Sodium Chloride 0.9% 100 ML IVPB SCH ×2 (06:13→17:40)
[2022-07-19] MEDS: Budesonide 0.5 MG/2 ML NEB NEB SCH ×2 (07:12→18:16)
[2022-07-19] MEDS: Lisinopril 10 MG TAB PO SCH ×2 (09:05→20:20)
[2022-07-19] MEDS: Senokot S 8.6-50 MG TAB PO SCH ×2 (09:05→20:19)
[2022-07-19] MEDS: predniSONE 20 MG TAB PO SCH (09:06)
[2022-07-19] MEDS: Tamsulosin HCl 0.4 MG CAP PO SCH (09:06)
[2022-07-19] MEDS: guaiFENesin ER 600 MG TAB PO SCH ×2 (09:06→20:19)
[2022-07-19] MEDS: Famotidine 20 MG TAB PO SCH ×2 (09:06→20:18)
[2022-07-19] MEDS: Doxycycline 100 MG CAP PO SCH ×2 (09:06→20:18)
[2022-07-19] MEDS: Furosemide 20 MG/2 ML VIAL SLOW IVP SCH (09:06)
[2022-07-20] MEDS: Ipratropium/Albuterol 3 ML NEB NEB SCH ×6 (02:05→22:23)
[2022-07-20] MEDS: Cefepime 1 GM in Sodium Chloride 0.9% 100 ML IVPB SCH ×2 (05:58→18:22)
[2022-07-20] MEDS: Budesonide 0.5 MG/2 ML NEB NEB SCH ×2 (07:07→18:42)
[2022-07-20] MEDS: Tamsulosin HCl 0.4 MG CAP PO SCH (08:39)
[2022-07-20] MEDS: Famotidine 20 MG TAB PO SCH ×2 (08:39→20:17)
[2022-07-20] MEDS: Furosemide 20 MG/2 ML VIAL SLOW IVP SCH (08:39)
[2022-07-20] MEDS: Lisinopril 10 MG TAB PO SCH ×2 (08:39→20:19)
[2022-07-20] MEDS: guaiFENesin ER 600 MG TAB PO SCH ×2 (08:39→20:17)
[2022-07-20] MEDS: Doxycycline 100 MG CAP PO SCH ×2 (08:39→20:17)
[2022-07-20] MEDS: predniSONE 20 MG TAB PO SCH (08:39)
[2022-07-20] MEDS: Senokot S 8.6-50 MG TAB PO SCH ×2 (08:39→20:17)
[2022-07-21] MEDS: Ipratropium/Albuterol 3 ML NEB NEB SCH ×6 (02:27→23:08)
[2022-07-21] MEDS: Cefepime 1 GM in Sodium Chloride 0.9% 100 ML IVPB SCH ×2 (05:29→18:14)
[2022-07-21] MEDS: Budesonide 0.5 MG/2 ML NEB NEB SCH (06:52)
[2022-07-21] MEDS: Senokot S 8.6-50 MG TAB PO SCH ×2 (08:32→20:43)
[2022-07-21] MEDS: Furosemide 20 MG/2 ML VIAL SLOW IVP SCH (08:32)
[2022-07-21] MEDS: Famotidine 20 MG TAB PO SCH ×2 (08:33→20:44)
[2022-07-21] MEDS: Lisinopril 10 MG TAB PO SCH ×2 (08:33→20:43)
[2022-07-21] MEDS: guaiFENesin ER 600 MG TAB PO SCH ×2 (08:33→20:43)
[2022-07-21] MEDS: Tamsulosin HCl 0.4 MG CAP PO SCH (08:33)
[2022-07-21] MEDS: predniSONE 20 MG TAB PO SCH (08:33)
[2022-07-21] MEDS: Doxycycline 100 MG CAP PO SCH ×2 (08:34→20:48)
[2022-07-21] MEDS: Mometasone 100 MCG/Formoterol 5 MCG 120 PUFF INHALER INH SCH (18:30)
[2022-07-22] MEDS: Ipratropium/Albuterol 3 ML NEB NEB SCH ×6 (03:53→23:36)
[2022-07-22] MEDS: Mometasone 100 MCG/Formoterol 5 MCG 120 PUFF INHALER INH SCH ×2 (07:02→19:07)
[2022-07-22] MEDS: Cefepime 1 GM in Sodium Chloride 0.9% 100 ML IVPB SCH (07:26)
[2022-07-22] MEDS: guaiFENesin ER 600 MG TAB PO SCH ×2 (08:12→20:31)
[2022-07-22] MEDS: predniSONE 20 MG TAB PO SCH (08:12)
[2022-07-22] MEDS: Senokot S 8.6-50 MG TAB PO SCH ×2 (08:12→20:31)
[2022-07-22] MEDS: Tamsulosin HCl 0.4 MG CAP PO SCH (08:12)
[2022-07-22] MEDS: Doxycycline 100 MG CAP PO SCH ×2 (08:12→20:31)
[2022-07-22] MEDS: Famotidine 20 MG TAB PO SCH ×2 (08:12→20:31)
[2022-07-22] MEDS: Furosemide 20 MG/2 ML VIAL SLOW IVP SCH (08:13)
[2022-07-22] MEDS: Lisinopril 10 MG TAB PO SCH ×2 (08:13→20:31)
[2022-07-23] MEDS: Ipratropium/Albuterol 3 ML NEB NEB SCH ×4 (02:04→18:50)
[2022-07-23] MEDS: Mometasone 100 MCG/Formoterol 5 MCG 120 PUFF INHALER INH SCH ×2 (06:34→18:52)
[2022-07-23] MEDS: Famotidine 20 MG TAB PO SCH ×2 (09:05→20:16)
[2022-07-23] MEDS: Senokot S 8.6-50 MG TAB PO SCH ×2 (09:05→20:16)
[2022-07-23] MEDS: guaiFENesin ER 600 MG TAB PO SCH ×2 (09:06→20:17)
[2022-07-23] MEDS: Doxycycline 100 MG CAP PO SCH ×2 (09:06→20:17)
[2022-07-23] MEDS: predniSONE 20 MG TAB PO SCH (09:06)
[2022-07-23] MEDS: Tamsulosin HCl 0.4 MG CAP PO SCH (09:06)
[2022-07-23] MEDS: Lisinopril 10 MG TAB PO SCH ×2 (09:06→20:16)
[2022-07-23] MEDS: Furosemide 20 MG TAB PO SCH (09:06)
[2022-07-24] MEDS: Ipratropium/Albuterol 3 ML NEB NEB SCH ×5 (00:36→23:54)
[2022-07-24] MEDS: Mometasone 100 MCG/Formoterol 5 MCG 120 PUFF INHALER INH SCH ×2 (06:23→18:49)
[2022-07-24] MEDS: predniSONE 20 MG TAB PO SCH (08:14)
[2022-07-24] MEDS: guaiFENesin ER 600 MG TAB PO SCH ×2 (08:14→20:23)
[2022-07-24] MEDS: Tamsulosin HCl 0.4 MG CAP PO SCH (08:14)
[2022-07-24] MEDS: Senokot S 8.6-50 MG TAB PO SCH ×2 (08:14→20:23)
[2022-07-24] MEDS: Famotidine 20 MG TAB PO SCH ×2 (08:14→20:24)
[2022-07-24] MEDS: Doxycycline 100 MG CAP PO SCH ×2 (08:14→20:24)
[2022-07-24] MEDS: Lisinopril 10 MG TAB PO SCH ×2 (08:15→20:24)
[2022-07-24] MEDS: Furosemide 20 MG TAB PO SCH (08:15)
[2022-07-25] MEDS: Ipratropium/Albuterol 3 ML NEB NEB SCH ×4 (06:20→23:39)
[2022-07-25] MEDS: Mometasone 100 MCG/Formoterol 5 MCG 120 PUFF INHALER INH SCH ×2 (06:21→18:27)
[2022-07-25 07:00] LABS: Hemoglobin 14.2 g/dL (14.0-18.0); Platelet Count 294 10x3/uL (130-400)
[2022-07-25] MEDS: predniSONE 20 MG TAB PO SCH (08:09)
[2022-07-25] MEDS: Senokot S 8.6-50 MG TAB PO SCH ×2 (08:09→20:22)
[2022-07-25] MEDS: Furosemide 20 MG TAB PO SCH (08:09)
[2022-07-25] MEDS: Doxycycline 100 MG CAP PO SCH ×2 (08:09→20:22)
[2022-07-25] MEDS: Lisinopril 10 MG TAB PO SCH ×2 (08:09→20:21)
[2022-07-25] MEDS: Famotidine 20 MG TAB PO SCH ×2 (08:09→20:22)
[2022-07-25] MEDS: Tamsulosin HCl 0.4 MG CAP PO SCH (08:09)
[2022-07-25] MEDS: guaiFENesin ER 600 MG TAB PO SCH ×2 (08:09→20:23)
[2022-07-26 01:32] VITALS: BP 116/70; TEMP 97.3
[2022-07-26] MEDS: Famotidine 20 MG TAB PO SCH (08:48)
[2022-07-26] MEDS: Doxycycline 100 MG CAP PO SCH (08:48)
[2022-07-26] MEDS: Lisinopril 10 MG TAB PO SCH (08:48)
[2022-07-26] MEDS: guaiFENesin ER 600 MG TAB PO SCH (08:48)
[2022-07-26] MEDS: Tamsulosin HCl 0.4 MG CAP PO SCH (08:48)
[2022-07-26] MEDS: predniSONE 20 MG TAB PO SCH (08:48)
[2022-07-26] MEDS: Furosemide 20 MG TAB PO SCH (08:48)
[2022-07-26] MEDS: Senokot S 8.6-50 MG TAB PO SCH (08:48)
[2022-07-26] MEDS: Mometasone 100 MCG/Formoterol 5 MCG 120 PUFF INHALER INH SCH (11:01)
[2022-07-26] MEDS: Ipratropium/Albuterol 3 ML NEB NEB SCH (11:01)
== END 2022-07-26 12:39 | disposition home or self-care (01) | DRG 196 ==
LOC: ERS 09:52 → IMCU/EMU 12:44 → T4-B 07-20 19:14
PROVIDERS: ADMIT Internal Medicine; ATTEND Family Medicine
PROC: 5A0945A Assistance with Respiratory Ventilation, 24-96 Consecutive Hours, High Flow/Velocity Cannula (ICD-10-PCS; 2022-07-16)
PROC: 4A033R1 Measurement of Arterial Saturation, Peripheral, Percutaneous Approach (ICD-10-PCS; 2022-07-16)
PROC: 5A09357 Assistance with Respiratory Ventilation, Less than 24 Consecutive Hours, Continuous Positive Airway Pressure (ICD-10-PCS; principal; 2022-07-17)
DX: J84.112 Idiopathic pulmonary fibrosis (principal); I50.33 Acute on chronic diastolic (congestive) heart failure; J96.21 Acute and chronic respiratory failure with hypoxia; J44.1 Chronic obstructive pulmonary disease with (acute) exacerbation; N40.0 Benign prostatic hyperplasia without lower urinary tract symptoms; I11.0 Hypertensive heart disease with heart failure; I35.0 Nonrheumatic aortic (valve) stenosis; Z60.2 Problems related to living alone; F17.210 Nicotine dependence, cigarettes, uncomplicated; Z71.6 Tobacco abuse counseling; Z79.899 Other long term (current) drug therapy; Z79.52 Long term (current) use of systemic steroids; Z99.81 Dependence on supplemental oxygen
CPT/HCPCS: 36415; 36416; 71045; 80048; 80053; 82565; 82805; 83735; 83880; 84100; 84484; 85014; 85018; 85025; 85049; 93005; 94640; 96365; 96375; J0692; J1650; J1940; J2272; J2920; J2930; J3475; J3490; J7512; J7611; J7620; J7626

== ENCOUNTER 2022-08-21 13:07 | Inpatient (IN) | payer MEDICARE ==
[2022-08-21 13:33] LABS: #Basophils 0.1 thou/uL (0.0-0.2); #Eosinphils 0.1 thou/uL (0.0-0.7); #Monocytes 0.5 thou/uL (0.11-0.59); %Basophils 0.6 % (0.0-1.0); %Eosinophils 1.2 % (0.0-10.0); %Lymphocytes 25.6 % (21.0-51.0); %Monocytes 4.4 % (0.0-10.0); %Neutrophils 67.8 % (42.0-75.0); Hemoglobin 14.5 g/dL (14.0-18.0); Mean Corpuscular HGB CONC 33.7 g/dL (32.0-36.0); Mean Corpuscular Hemoglobin 33.6 pg (27.0-31.0); Mean Corpuscular Volume 99.5 fl (78.0-98.0); Mean Platelet Volume 9.9 fL (7.4-10.4); Platelet Count 286 10x3/uL (130-400); RBC Distribution Width 14.6 % (11.5-14.5); Red Blood Cell (RBC) Count 4.32 mill/uL (4.70-6.10); White Blood Cell (WBC) Count 10.3 10x3/uL (4.8-10.8)
[2022-08-21 13:38] LABS: Actual Bicarbonate (HCO3v) 17.7 mEq/L (22-28); Analyzer IN Cardio ER; Calcium, Ionized (venous) 1.07 mmol/L (1.16-1.32); Chloride (VBG) 111 mmol/L (98-106); Hematocrit-VBG 45 % (42.0-52.0); Hemoglobin (Hb) 15.3 g/dL (12.6-17.4); Potassium (VBG) 3.63 mmol/L (3.70-5.30); pH (venous) 7.425 (7.32-7.43)
[2022-08-21] MEDS ORDERED: Ipratropium/Albuterol 3 ML NEB ONE (13:40)
[2022-08-21] MEDS ORDERED: Magnesium 2 GM/50 ML BAG (IN WATER) ONE (13:44)
[2022-08-21 13:54] LABS: ALT (SGPT) 12 U/L (8-55); AST (SGOT) 20 U/L (5-34); Albumin 3.8 g/dL (3.4-4.8); Alkaline Phosphatase 84 U/L (40-110); Anion Gap 13 mmol/L (10-20); BUN (Urea Nitrogen) 15 mg/dL (8.4-25.7); Bilirubin, Total 0.8 mg/dL (0.2-1.2); Calc. Creatinine Clearance 0 mL/min (70-130); Calcium 8.9 mg/dL (7.8-10.44); Carbon Dioxide 18 mmol/L (23-31); Chloride 113 mmol/L (98-107); Estimated GFR 93; Globulin 2.7 g/dL (2.4-3.5); Glucose 132 mg/dL (83-110); Magnesium 1.8 mg/dL (1.6-2.6); Potassium 3.8 mmol/L (3.5-5.1); Protein, Total 6.5 g/dL (5.8-8.1); Sodium 140 mmol/L (136-145)
[2022-08-21] MEDS ORDERED: Furosemide 40 MG/4 ML VIAL ONE (14:31)
[2022-08-21] MEDS ORDERED: Guaifenesin DM 100-10/5 ML UDCUP PO PRN (16:14)
[2022-08-21] MEDS ORDERED: Senokot S 8.6-50 MG TAB PO PRN (16:14)
[2022-08-21] MEDS ORDERED: Ondansetron PF 4 MG/2 ML Vial IVP PRN (16:14)
[2022-08-21] MEDS: Ipratropium/Albuterol 3 ML NEB NEB SCH (18:04)
[2022-08-21] MEDS: Mometasone/Formoterol 200/5 60 PUFF INH SCH (18:06)
[2022-08-21] MEDS: methylPREDNISolone Sod Succ 40 MG VIAL IVP SCH (18:15)
[2022-08-21] MEDS: Lisinopril 10 MG TAB PO SCH (20:31)
[2022-08-21] MEDS: Cefuroxime 250 MG TAB PO SCH (20:41)
[2022-08-22] MEDS: methylPREDNISolone Sod Succ 40 MG VIAL IVP SCH ×2 (00:37→05:20)
[2022-08-22] MEDS: Ipratropium/Albuterol 3 ML NEB NEB SCH ×5 (02:08→23:52)
[2022-08-22 04:14] LABS: #Monocytes 0.1 thou/uL (0.11-0.59); #Neutrophils 4.1 thou/uL (1.40-6.50); %Basophils 0.2 % (0.0-1.0); %Lymphocytes 23.9 % (21.0-51.0); %Monocytes 1.6 % (0.0-10.0); %Neutrophils 73.9 % (42.0-75.0); Hemoglobin 14.4 g/dL (14.0-18.0); Mean Corpuscular HGB CONC 33.6 g/dL (32.0-36.0); Mean Corpuscular Volume 98.2 fl (78.0-98.0); Mean Platelet Volume 9.9 fL (7.4-10.4); Platelet Count 280 10x3/uL (130-400); RBC Distribution Width 14.5 % (11.5-14.5); Red Blood Cell (RBC) Count 4.36 mill/uL (4.70-6.10); White Blood Cell (WBC) Count 5.6 10x3/uL (4.8-10.8)
[2022-08-22 04:38] LABS: Anion Gap 12 mmol/L (10-20); BUN (Urea Nitrogen) 19 mg/dL (8.4-25.7); Calc. Creatinine Clearance 79 mL/min (70-130); Calcium 9.2 mg/dL (7.8-10.44); Carbon Dioxide 22 mmol/L (23-31); Chloride 106 mmol/L (98-107); Estimated GFR 94; Glucose 161 mg/dL (83-110); Potassium 4.2 mmol/L (3.5-5.1); Sodium 136 mmol/L (136-145)
[2022-08-22] MEDS: Mometasone/Formoterol 200/5 60 PUFF INH SCH ×2 (07:57→18:11)
[2022-08-22] MEDS: Lisinopril 10 MG TAB PO SCH ×2 (09:31→20:28)
[2022-08-22] MEDS: Tamsulosin HCl 0.4 MG CAP PO SCH (09:31)
[2022-08-22] MEDS: Cefuroxime 250 MG TAB PO SCH ×2 (09:32→20:28)
[2022-08-22] MEDS ORDERED: Furosemide 40 MG/4 ML VIAL SLOW IVP SCH (10:00)
[2022-08-22] MEDS ORDERED: QUEtiapine 25 MG TAB PO SCH (10:15)
[2022-08-22] MEDS: QUEtiapine 25 MG TAB PO SCH (20:28)
[2022-08-23] MEDS: Mometasone/Formoterol 200/5 60 PUFF INH SCH ×2 (08:16→18:38)
[2022-08-23] MEDS: Ipratropium/Albuterol 3 ML NEB NEB SCH ×3 (08:16→18:37)
[2022-08-23] MEDS: Lisinopril 10 MG TAB PO SCH (08:29)
[2022-08-23] MEDS: QUEtiapine 25 MG TAB PO SCH ×2 (08:29→20:37)
[2022-08-23] MEDS: Cefuroxime 250 MG TAB PO SCH ×2 (08:29→20:38)
[2022-08-23] MEDS: Tamsulosin HCl 0.4 MG CAP PO SCH (08:29)
[2022-08-24] MEDS: Ipratropium/Albuterol 3 ML NEB NEB SCH ×4 (01:45→20:00)
[2022-08-24] MEDS: Mometasone/Formoterol 200/5 60 PUFF INH SCH ×2 (07:43→20:01)
[2022-08-24] MEDS: QUEtiapine 25 MG TAB PO SCH ×2 (08:33→21:27)
[2022-08-24] MEDS: Furosemide 20 MG TAB PO SCH (08:33)
[2022-08-24] MEDS: Lisinopril 10 MG TAB PO SCH (08:33)
[2022-08-24] MEDS: predniSONE 5 MG TAB PO SCH (08:33)
[2022-08-24] MEDS: Tamsulosin HCl 0.4 MG CAP PO SCH (08:33)
[2022-08-24] MEDS: Cefuroxime 250 MG TAB PO SCH ×2 (08:36→21:27)
[2022-08-25] MEDS: Ipratropium/Albuterol 3 ML NEB NEB SCH ×5 (00:09→23:53)
[2022-08-25 04:34] VITALS: BMI 25.1
[2022-08-25] MEDS: Mometasone/Formoterol 200/5 60 PUFF INH SCH ×2 (07:40→18:54)
[2022-08-25] MEDS: Tamsulosin HCl 0.4 MG CAP PO SCH (09:18)
[2022-08-25] MEDS: Furosemide 20 MG TAB PO SCH (09:18)
[2022-08-25] MEDS: Lisinopril 10 MG TAB PO SCH (09:18)
[2022-08-25] MEDS: Cefuroxime 250 MG TAB PO SCH ×2 (09:18→20:33)
[2022-08-25] MEDS: predniSONE 5 MG TAB PO SCH (09:19)
[2022-08-25] MEDS: QUEtiapine 25 MG TAB PO SCH ×2 (09:19→20:33)
[2022-08-25 10:00] LABS: #Eosinphils 0.4 thou/uL (0.0-0.7); #Monocytes 0.7 thou/uL (0.11-0.59); #Neutrophils 6.2 thou/uL (1.40-6.50); %Basophils 0.4 % (0.0-1.0); %Lymphocytes 29.5 % (21.0-51.0); %Monocytes 6.9 % (0.0-10.0); %Neutrophils 57.9 % (42.0-75.0); Hemoglobin 14.5 g/dL (14.0-18.0); Mean Corpuscular HGB CONC 33.1 g/dL (32.0-36.0); Mean Corpuscular Hemoglobin 33.6 pg (27.0-31.0); Mean Corpuscular Volume 101.4 fl (78.0-98.0); Mean Platelet Volume 9.9 fL (7.4-10.4); Platelet Count 294 10x3/uL (130-400); RBC Distribution Width 14.5 % (11.5-14.5); Red Blood Cell (RBC) Count 4.32 mill/uL (4.70-6.10); White Blood Cell (WBC) Count 10.8 10x3/uL (4.8-10.8)
[2022-08-25 10:19] LABS: Anion Gap 11 mmol/L (10-20); BUN (Urea Nitrogen) 21 mg/dL (8.4-25.7); Calc. Creatinine Clearance 77 mL/min (70-130); Carbon Dioxide 23 mmol/L (23-31); Chloride 106 mmol/L (98-107); Estimated GFR 94; Glucose 92 mg/dL (83-110); Potassium 4.2 mmol/L (3.5-5.1); Sodium 136 mmol/L (136-145)
[2022-08-26] MEDS ORDERED: Sodium Chloride 0.9% 500 ML IV SCH (01:00)
[2022-08-26] MEDS ORDERED: Midodrine HCl 5 MG TAB PO SCH (01:45)
[2022-08-26] MEDS: Mometasone/Formoterol 200/5 60 PUFF INH SCH ×2 (06:55→19:01)
[2022-08-26] MEDS: Ipratropium/Albuterol 3 ML NEB NEB SCH ×4 (06:56→23:25)
[2022-08-26] MEDS: Cefuroxime 250 MG TAB PO SCH ×2 (08:54→20:12)
[2022-08-26] MEDS: Tamsulosin HCl 0.4 MG CAP PO SCH (08:54)
[2022-08-26] MEDS: predniSONE 5 MG TAB PO SCH (08:55)
[2022-08-26] MEDS: Lisinopril 10 MG TAB PO SCH (08:55)
[2022-08-26] MEDS: Furosemide 20 MG TAB PO SCH (08:55)
[2022-08-26] MEDS: QUEtiapine 25 MG TAB PO SCH ×2 (08:55→20:12)
[2022-08-26] MEDS ORDERED: fentaNYL PF 100 MCG/2 ML SYRINGE ONE (11:27)
[2022-08-26] MEDS ORDERED: SUGAMMADEX SODIUM 200 MG/2 ML VIAL ONE (11:27)
[2022-08-26] MEDS ORDERED: Ipratropium/Albuterol 3 ML NEB NEB SCH (11:45)
[2022-08-26] MEDS: Lidocaine 4% PF 5 ML AMP NEB SCH ×2 (11:50→15:13)
[2022-08-26] MEDS ORDERED: Albuterol HFA (OR) 200 PUFF INH ONE (12:14)
[2022-08-26] MEDS ORDERED: PROPOFOL 200 MG/20 ML VIAL ONE (12:14)
[2022-08-26] MEDS ORDERED: Ondansetron PF 4 MG/2 ML Vial ONE (12:14)
[2022-08-26] MEDS ORDERED: PHENYLEPHRINE-NS 100 MCG/ML 10 ML SYRINGE ONE (12:14)
[2022-08-26] MEDS ORDERED: Rocuronium Bromide 10 MG/ML (10ML VIAL) ONE (12:14)
[2022-08-26] MEDS ORDERED: Dexamethasone 20 MG/5 ML VIAL ONE (12:14)
[2022-08-26] MEDS ORDERED: Lidocaine 1% PF 5 ML VIAL ONE (12:14)
[2022-08-26 14:22] LABS: BF Color Colorless; Body Fluid Source Bronchial Washings; Clarity Hazy (Clear); Tube # EDTA
[2022-08-26 14:23] LABS: BF RBC Count - Manual 376 /cu.mm; BF WBC/Nonhematics Ct.-Manual 457 /cu.mm
[2022-08-26 14:26] LABS: BF Segmented Neutrophils 19 %; Cell Count Non Hematic 69 %; Eosinophils 1 %; Lymphocytes 11 %
[2022-08-26] MEDS: Sodium Chloride 0.9% 1,000 ML IV SCH (19:07)
[2022-08-27] MEDS: Mometasone/Formoterol 200/5 60 PUFF INH SCH ×2 (07:05→19:07)
[2022-08-27] MEDS: Ipratropium/Albuterol 3 ML NEB NEB SCH ×3 (07:06→19:06)
[2022-08-27] MEDS: Sodium Chloride 0.9% 1,000 ML IV SCH (07:15)
[2022-08-27] MEDS: Tamsulosin HCl 0.4 MG CAP PO SCH (10:31)
[2022-08-27] MEDS: QUEtiapine 25 MG TAB PO SCH ×2 (10:31→21:29)
[2022-08-27] MEDS: Cefuroxime 250 MG TAB PO SCH ×2 (10:31→21:30)
[2022-08-27] MEDS: predniSONE 5 MG TAB PO SCH (10:31)
[2022-08-27] MEDS: Acetaminophen 325 MG TAB PO PRN ×2 (15:44→21:29)
[2022-08-28] MEDS: Ipratropium/Albuterol 3 ML NEB NEB SCH ×4 (00:08→19:02)
[2022-08-28] MEDS: Sodium Chloride 0.9% 1,000 ML IV SCH ×2 (04:55→23:18)
[2022-08-28] MEDS: Mometasone/Formoterol 200/5 60 PUFF INH SCH ×2 (06:48→19:03)
[2022-08-28 06:50] LABS: #Basophils 0.1 thou/uL (0.0-0.2); #Eosinphils 0.2 thou/uL (0.0-0.7); #Monocytes 0.6 thou/uL (0.11-0.59); #Neutrophils 5.2 thou/uL (1.40-6.50); %Basophils 0.5 % (0.0-1.0); %Eosinophils 2.4 % (0.0-10.0); %Lymphocytes 31.9 % (21.0-51.0); %Monocytes 6.7 % (0.0-10.0); %Neutrophils 57.5 % (42.0-75.0); Hemoglobin 13.1 g/dL (14.0-18.0); Mean Corpuscular HGB CONC 32.3 g/dL (32.0-36.0); Mean Corpuscular Hemoglobin 33.3 pg (27.0-31.0); Mean Corpuscular Volume 103.3 fl (78.0-98.0); Platelet Count 311 10x3/uL (130-400); RBC Distribution Width 13.8 % (11.5-14.5); Red Blood Cell (RBC) Count 3.93 mill/uL (4.70-6.10); White Blood Cell (WBC) Count 9.1 10x3/uL (4.8-10.8)
[2022-08-28 07:14] LABS: Anion Gap 14 mmol/L (10-20); BUN (Urea Nitrogen) 20 mg/dL (8.4-25.7); Calc. Creatinine Clearance 66 mL/min (70-130); Calcium 9.4 mg/dL (7.8-10.44); Carbon Dioxide 24 mmol/L (23-31); Chloride 104 mmol/L (98-107); Estimated GFR 89; Glucose 85 mg/dL (83-110); Potassium 4.6 mmol/L (3.5-5.1); Sodium 137 mmol/L (136-145)
[2022-08-28] MEDS: predniSONE 5 MG TAB PO SCH (08:23)
[2022-08-28] MEDS: Tamsulosin HCl 0.4 MG CAP PO SCH (08:23)
[2022-08-28] MEDS: Cefuroxime 250 MG TAB PO SCH ×2 (08:23→21:28)
[2022-08-28] MEDS: QUEtiapine 25 MG TAB PO SCH ×2 (08:23→21:28)
[2022-08-28] MEDS: Acetaminophen 325 MG TAB PO PRN (21:28)
[2022-08-29] MEDS: Ipratropium/Albuterol 3 ML NEB NEB SCH ×5 (01:38→23:38)
[2022-08-29] MEDS: Mometasone/Formoterol 200/5 60 PUFF INH SCH ×2 (07:07→18:12)
[2022-08-29] MEDS: Lisinopril 10 MG TAB PO SCH (09:18)
[2022-08-29] MEDS: Furosemide 20 MG TAB PO SCH (09:18)
[2022-08-29] MEDS: Tamsulosin HCl 0.4 MG CAP PO SCH (09:21)
[2022-08-29] MEDS: predniSONE 5 MG TAB PO SCH (09:21)
[2022-08-29] MEDS: QUEtiapine 25 MG TAB PO SCH ×2 (09:21→21:21)
[2022-08-29] MEDS: Sodium Chloride 0.9% 1,000 ML IV SCH (18:14)
[2022-08-29] MEDS: Acetaminophen 325 MG TAB PO PRN (21:21)
[2022-08-30 01:58] VITALS: TEMP 98.1
[2022-08-30] MEDS: Ipratropium/Albuterol 3 ML NEB NEB SCH (07:44)
[2022-08-30] MEDS: Mometasone/Formoterol 200/5 60 PUFF INH SCH (07:48)
[2022-08-30] MEDS: Lisinopril 10 MG TAB PO SCH (08:43)
[2022-08-30] MEDS: predniSONE 5 MG TAB PO SCH (08:43)
[2022-08-30] MEDS: QUEtiapine 25 MG TAB PO SCH (08:43)
[2022-08-30] MEDS: Tamsulosin HCl 0.4 MG CAP PO SCH (08:43)
[2022-08-30] MEDS: Furosemide 20 MG TAB PO SCH (08:44)
[2022-08-30] MEDS: Sodium Chloride 0.9% 1,000 ML IV SCH (08:44)
[2022-08-30 14:14] VITALS: BP 95/59
[2022-08-31 12:38] LABS: Aspergillus fumigatus Negative (Negative); Aureobasidium pullalans IgG Negative (Negative); Micropolyspora faeni Negative (Negative); Pigeon Droppings IgG Negative (Negative); T sacchari Negative (Negative); T vulgaris Negative (Negative)
[2022-09-01 18:12] LABS: Fungus Stain Final report (.)
== END 2022-08-30 14:30 | DRG 196 ==
LOC: ERS 13:07 → IMCU/EMU 17:10 → T4-A 08-23 20:55
PROVIDERS: ADMIT Internal Medicine; ATTEND Internal Medicine
PROC: 0B9H8ZX Drainage of Lung Lingula, Via Natural or Artificial Opening Endoscopic, Diagnostic (ICD-10-PCS; principal; 2022-08-26)
PROC: 0B9D8ZX Drainage of Right Middle Lung Lobe, Via Natural or Artificial Opening Endoscopic, Diagnostic (ICD-10-PCS; 2022-08-26)
PROC: 5A0945A Assistance with Respiratory Ventilation, 24-96 Consecutive Hours, High Flow/Velocity Cannula (ICD-10-PCS; 2022-08-27)
PROC: 5A09357 Assistance with Respiratory Ventilation, Less than 24 Consecutive Hours, Continuous Positive Airway Pressure (ICD-10-PCS; 2022-08-27)
DX: J84.9 Interstitial pulmonary disease, unspecified (principal); I50.33 Acute on chronic diastolic (congestive) heart failure; J96.21 Acute and chronic respiratory failure with hypoxia; J44.1 Chronic obstructive pulmonary disease with (acute) exacerbation; J84.112 Idiopathic pulmonary fibrosis; N40.0 Benign prostatic hyperplasia without lower urinary tract symptoms; F17.210 Nicotine dependence, cigarettes, uncomplicated; I35.0 Nonrheumatic aortic (valve) stenosis; I95.9 Hypotension, unspecified; I11.0 Hypertensive heart disease with heart failure; Z79.899 Other long term (current) drug therapy; Z99.81 Dependence on supplemental oxygen; Z91.148 Patient's other noncompliance with medication regimen for other reason
CPT/HCPCS: 36415; 71045; 71250; 80048; 80053; 82805; 83605; 83735; 83880; 84484; 85025; 85060; 86331; 86602; 86606; 86671; 87070; 87077; 87102; 87116; 87186; 87205; 87206; 88108; 88305; 89051; 93005; 94640; 94660; 96365; 96375; J1100; J1650; J1940; J2405; J2704; J2920; J3475; J7030; J7512; J7620

== ENCOUNTER 2022-08-30 16:34 | Emergency (ER) | payer MEDICARE ==
[2022-08-30 17:06] LABS: #Basophils 0.1 thou/uL (0.0-0.2); #Eosinphils 0.1 thou/uL (0.0-0.7); #Monocytes 0.8 thou/uL (0.11-0.59); #Neutrophils 10.9 thou/uL (1.40-6.50); %Basophils 0.3 % (0.0-1.0); %Eosinophils 0.5 % (0.0-10.0); %Lymphocytes 17.8 % (21.0-51.0); %Monocytes 5.6 % (0.0-10.0); Hemoglobin 14.3 g/dL (14.0-18.0); Mean Corpuscular Hemoglobin 33.6 pg (27.0-31.0); Mean Corpuscular Volume 101.6 fl (78.0-98.0); Mean Platelet Volume 10.1 fL (7.4-10.4); Platelet Count 379 10x3/uL (130-400); RBC Distribution Width 13.9 % (11.5-14.5); Red Blood Cell (RBC) Count 4.26 mill/uL (4.70-6.10); White Blood Cell (WBC) Count 14.7 10x3/uL (4.8-10.8)
[2022-08-30 17:06] LABS: Actual Bicarbonate (HCO3v) 23.1 mEq/L (22-28); Analyzer IN Cardio ER; Base Excess -0.6 mEq/L (-2.0 to +3.0); Calcium, Ionized (venous) 1.17 mmol/L (1.16-1.32); Chloride (VBG) 99 mmol/L (98-106); Hematocrit-VBG 47 % (42.0-52.0); Potassium (VBG) 4.99 mmol/L (3.70-5.30); Sodium 132.4 mmol/L (133-146); pH (venous) 7.433 (7.32-7.43)
[2022-08-30 17:28] LABS: ALT (SGPT) 20 U/L (8-55); AST (SGOT) 18 U/L (5-34); Albumin 4.2 g/dL (3.4-4.8); Alkaline Phosphatase 97 U/L (40-110); Anion Gap 14 mmol/L (10-20); BUN (Urea Nitrogen) 27 mg/dL (8.4-25.7); Bilirubin, Total 0.4 mg/dL (0.2-1.2); Calc. Creatinine Clearance 0 mL/min (70-130); Calcium 10.4 mg/dL (7.8-10.44); Carbon Dioxide 26 mmol/L (23-31); Chloride 100 mmol/L (98-107); Estimated GFR 65; Globulin 3.1 g/dL (2.4-3.5); Glucose 122 mg/dL (83-110); Potassium 5.3 mmol/L (3.5-5.1); Protein, Total 7.3 g/dL (5.8-8.1); Sodium 135 mmol/L (136-145)
== END 2022-08-30 20:10 ==
LOC: ERS 16:34
DX: J44.9 Chronic obstructive pulmonary disease, unspecified (principal); D72.829 Elevated white blood cell count, unspecified; F17.210 Nicotine dependence, cigarettes, uncomplicated; Z79.899 Other long term (current) drug therapy
CPT/HCPCS: 71045; 80053; 82805; 83605; 83880; 84484; 85025; 93005